=== PATIENT | female | born 1970 | race Caucasian/White ===

== ENCOUNTER → 2016-10-04 | Outpatient (CLI) | payer BC ==
[~2016-10-04] MED LIST: MULT1CAP6 PO; PYRI100T4 PO
== END | disposition home or self-care (01) ==
LOC: C.PAPS 08:16
PROVIDERS: ATTEND Obstetrics & Gynecology
DX: Z01.419 Encounter for gynecological examination (general) (routine) without abnormal findings (principal); R87.610 Atypical squamous cells of undetermined significance on cytologic smear of cervix (ASC-US)

== ENCOUNTER → 2016-10-18 | Outpatient (CLI) | payer BC | END | disposition home or self-care (01) | LOC: C.PATHSPEC 17:25 | PROVIDERS: ATTEND Surgery | DX: D17.30 Benign lipomatous neoplasm of skin and subcutaneous tissue of unspecified sites (principal) ==

== ENCOUNTER → 2016-12-31 | Outpatient (CLI) | payer BC ==
--- NOTE | 2016-12-31 16:07 | DIAGNOSTIC IMAGING REPORT ---
R SHOULDER MIN 2 VIEWS ROUTINE CLINICAL HISTORY: Right shoulder pain status post trauma COMPARISON: None. DISCUSSION: No fractures or dislocations are visualized. There is a small bone island within the humeral head. IMPRESSION: No fractures or dislocations identified. Electronically signed by: Juanito Saenz M.D. 12/31/2016 4:05 PM Dictated Date/Time: 12/31/2016 4:05 PM
== END | disposition home or self-care (01) ==
LOC: C.RAD1850 15:52
PROVIDERS: ATTEND Physician Assistant
DX: S49.91XA Unspecified injury of right shoulder and upper arm, initial encounter (principal); X58.XXXA Exposure to other specified factors, initial encounter

== ENCOUNTER 2017-04-08 07:40 | Emergency (ER) | payer BC, OTHER ==
[~2017-04-08] VITALS: Ht 165.1 cm; Wt 102.1 kg
[2017-04-08 07:43] VITALS: TEMP 36.8; Ht 165.1 cm; Wt 102.1 kg
[2017-04-08] MEDS ORDERED: ONDANSETRON INJ 2 MG/ML 2 ML VIAL IV STA (08:02)
[2017-04-08] MEDS ORDERED: MoRPHine SULFATE 4 MG/ML 1 ML CARP\\VIAL IV STA ×2 (08:02→11:09)
[2017-04-08] MEDS ORDERED: OPTIRAY 320 IV PRN (08:15)
[2017-04-08 08:20] LABS: BASO % 0.4 %; BASO ABS # 0.03 K/uL (0-0.2); EOS % 2.4 %; EOS ABS # 0.17 K/uL (0-0.5); HEMATOCRIT 39.6 % (37-47); HEMOGLOBIN 13.4 g/dL (12.0-16.0); IG# 0.02 K/uL (0.00-0.02); LYMPH % 24.6 %; LYMPH ABS # 1.78 K/uL (1.2-3.4); MEAN CORPUSCULAR HEMOGLOBIN 30.5 pg (25-34); MEAN CORPUSCULAR HGB CONC 33.8 g/dl (32-36); MEAN PLATELET VOLUME 9.4 fL (7.4-10.4); MONO % 3.6 %; MONO ABS # 0.26 K/uL (0.11-0.59); NEUT % 68.7 %; NEUT ABS # 4.97 K/uL (1.4-6.5); PLATELET COUNT 234 K/uL (130-400); RED CELL DISTRIBUTION WIDTH CV 12.8 % (11.5-14.5); RED CELL DISTRIBUTION WIDTH SD 41.8 fL (36.4-46.3); WHITE BLOOD COUNT 7.23 K/uL (4.8-10.8)
[2017-04-08] MEDS ORDERED: BCPILLS PO (08:36)
[2017-04-08 08:37] LABS: ALBUMIN 3.5 gm/dl (3.4-5.0); CREATININE 0.74 mg/dl (0.60-1.20); POTASSIUM 3.9 mmol/L (3.5-5.1)
[2017-04-08 08:40] LABS: TOTAL PROTEIN 7.2 gm/dl (6.4-8.2)
--- NOTE | 2017-04-08 10:58 | DIAGNOSTIC IMAGING REPORT ---
CT OF THE ABDOMEN AND PELVIS WITH CONTRAST CLINICAL HISTORY: Right lower quadrant abdominal pain. COMPARISON STUDY: CT of the abdomen and pelvis December 20, 2012. TECHNIQUE: Following IV administration of 95 mL of Optiray-320, axial images of the abdomen and pelvis were obtained from the lung bases to the proximal femurs. Images were reviewed in the axial, sagittal, and coronal planes. IV contrast was administered without complication. A dose lowering technique was utilized adhering to the principles of ALARA. Oral contrast was administered. CT DOSE: 1056.70 mGycm FINDINGS: Lung bases are clear. There is mild cardiomegaly. The liver, spleen, adrenal glands, kidneys and pancreas are unremarkable. There is no biliary or pancreatic ductal dilatation. There is no peripancreatic or pericholecystic infiltration. Caliber and wall thickness of small and large bowel are normal. The appendix is normal. There is no lymphadenopathy or ascites. There is no hydronephrosis. No suspicious osseous lesions are present. The ovaries are not enlarged. IMPRESSION: No acute process within the abdomen or pelvis. Normal appendix. No bowel obstruction. Electronically signed by: Jarret Houston M.D. 04/08/2017 10:56 AM Dictated Date/Time: 04/08/2017 10:50 AM
--- NOTE | 2017-04-08 11:06 | EMERGENCY ROOM VISIT NOTE ---
History First contact with patient: 07:47 Chief Complaint: ABDOMINAL PAIN Stated Complaint: SEVERE PAIN IN LOWER RT SIDE OF ABD Nursing Triage Summary: Yesterday morning about this time I got this burning in my lower abdomen. Now the pain is more intense and painful. I had a tummy tuck 3 years ago". History of Present Illness The patient is a 46 year old female who presents to the Emergency Room via private vehicle with complaints of "severe pain and lower right side of abdomen ". The patient states that she awoke with right lower quadrant abdominal pain, worse with sitting. She states that she did have a "tummy tuck" 3 years ago and questions if this could be residual scar tissue. She notes that the pain is burning and now knifelike in the right lower quadrant. She still has all of her intra-abdominal organs. She denies any dysuria, or pelvic pain. There is no vaginal discharge. She denies any fevers. Review of Systems A complete 10-point Review of Systems was discussed with the patient, with pertinent positives and negatives listed in the History of Present Illness. All remaining Review of Systems questions can be considered negative unless otherwise specified. Past Medical/Surgical History "Tummy tuck" Family History No pertinent. Social History Smoking Status: Never Smoker Social History: Patient lives locally. Current/Historical Medications Scheduled Control Pills ( Control Pills), 1 TAB PO DAILY Scheduled PRN Oxycodone Ir (Roxicodone Ir), 1-2 TAB PO Q4H PRN for Pain Allergies Coded Allergies: No Known Allergies (Verified , 04/08/17) Physical Exam Vital Signs Date Time Temp Pulse Resp B/P (MAP) Pulse Ox O2 Delivery O2 Flow Rate FiO2 04/08/17 14:13 84 18 123/78 97 Room Air 04/08/17 11:58 62 16 123/68 96 Room Air 04/08/17 09:23 79 18 136/83 100 Room Air 04/08/17 07:43 36.8 80 20 143/86 98 Room Air Physical Exam VITAL SIGNS - Vital signs and nursing notes were reviewed. Stable. Afebrile. GENERAL -46-year-old female appearing her stated age who is in no acute distress. Communicates well with provider and answers questions appropriately. SKIN - Without rashes. No petechiae or meningeal rash. LUNGS - Chest wall symmetric without accessory muscle use, intercostals retractions, or central cyanosis. Normal vesicular breath sounds CTA B/L. No wheezes, rales, or rhonchi appreciated. CARDIAC - RRR with S1/S2. No murmur, rubs, or gallops appreciated. ABDOMEN - Abdominal contour normal without pulsations or visible masses. BS normoactive all four quadrants. Right lower quadrant tenderness not identified. No palpable masses, hepatosplenomegaly, or ascites noted. Medical Decision & Procedures ER Provider Diagnostic Interpretation: CT OF THE ABDOMEN AND PELVIS WITH CONTRAST CLINICAL HISTORY: Right lower quadrant abdominal pain. COMPARISON STUDY: CT of the abdomen and pelvis December 20, 2012. TECHNIQUE: Following IV administration of 95 mL of Optiray-320, axial images of the abdomen and pelvis were obtained from the lung bases to the proximal femurs. Images were reviewed in the axial, sagittal, and coronal planes. IV contrast was administered without complication. A dose lowering technique was utilized adhering to the principles of ALARA. Oral contrast was administered. CT DOSE: 1056.70 mGycm FINDINGS: Lung bases are clear. There is mild cardiomegaly. The liver, spleen, adrenal glands, kidneys and pancreas are unremarkable. There is no biliary or pancreatic ductal dilatation. There is no peripancreatic or pericholecystic infiltration. Caliber and wall thickness of small and large bowel are normal. The appendix is normal. There is no lymphadenopathy or ascites. There is no hydronephrosis. No suspicious osseous lesions are present. The ovaries are not enlarged. IMPRESSION: No acute process within the abdomen or pelvis. Normal appendix. No bowel obstruction. Electronically signed by: Jarret Houston M.D. 04/08/2017 10:56 AM Dictated Date/Time: 04/08/2017 10:50 AM PELVIC ULTRASOUND, TRANSABDOMINAL AND TRANSVAGINAL HISTORY: Right lower quadrant abdominal pain. COMPARISON: Abdomen and pelvis CT 04/08/2017. FINDINGS: Uterus: 6.7 x 3.8 x 2.6 cm. Evidence for prior scar. No uterine masses. Endometrial stripe: 3 mm in thickness. Right ovary: Normal in size and demonstrates normal color flow. Left ovary: Obscured by overlying bowel gas. Miscellaneous:No pelvic free fluid. IMPRESSION: 1. The left ovary was not identified due to overlying bowel gas. 2. Normal uterus and right ovary. Electronically signed by: Ramon Mcleod M.D. 04/08/2017 1:44 PM Dictated Date/Time: 04/08/2017 1:40 PM Laboratory Results 04/08/17 08:06 Red Blood Count 4.40, Mean Corpuscular Volume 90.0, Mean Corpuscular Hemoglobin 30.5, Mean Corpuscular Hemoglobin Concent 33.8, Mean Platelet Volume 9.4, Neutrophils (%) (Auto) 68.7, Lymphocytes (%) (Auto) 24.6, Monocytes (%) (Auto) 3.6, Eosinophils (%) (Auto) 2.4, Basophils (%) (Auto) 0.4, Neutrophils # (Auto) 4.97, Lymphocytes # (Auto) 1.78, Monocytes # (Auto) 0.26, Eosinophils # (Auto) 0.17, Basophils # (Auto) 0.03 04/08/17 08:06 Test 04/08/17 08:06 04/08/17 08:25 White Blood Count 7.23 K/uL (4.8-10.8) Red Blood Count 4.40 M/uL (4.2-5.4) Hemoglobin 13.4 g/dL (12.0-16.0) Hematocrit 39.6 % (37-47) Mean Corpuscular Volume 90.0 fL (80-100) Mean Corpuscular Hemoglobin 30.5 pg (25-34) Mean Corpuscular Hemoglobin Concent 33.8 g/dl (32-36) Platelet Count 234 K/uL (130-400) Mean Platelet Volume 9.4 fL (7.4-10.4) Neutrophils (%) (Auto) 68.7 % Lymphocytes (%) (Auto) 24.6 % Monocytes (%) (Auto) 3.6 % Eosinophils (%) (Auto) 2.4 % Basophils (%) (Auto) 0.4 % Neutrophils # (Auto) 4.97 K/uL (1.4-6.5) Lymphocytes # (Auto) 1.78 K/uL (1.2-3.4) Monocytes # (Auto) 0.26 K/uL (0.11-0.59) Eosinophils # (Auto) 0.17 K/uL (0-0.5) Basophils # (Auto) 0.03 K/uL (0-0.2) RDW Standard Deviation 41.8 fL (36.4-46.3) RDW Coefficient of Variation 12.8 % (11.5-14.5) Immature Granulocyte % (Auto) 0.3 % Immature Granulocyte # (Auto) 0.02 K/uL (0.00-0.02) Anion Gap 9.0 mmol/L (3-11) Est Creatinine Clear Calc Drug Dose 113.7 ml/min Estimated GFR () 113.4 Estimated GFR (Non- 97.8 BUN/Creatinine Ratio 13.8 (10-20) Calcium Level 9.0 mg/dl (8.5-10.1) Magnesium Level 2.0 mg/dl (1.8-2.4) Total Bilirubin 0.3 mg/dl (0.2-1) Aspartate Amino Transf (AST/SGOT) 18 U/L (15-37) Alanine Aminotransferase (ALT/SGPT) 23 U/L (12-78) Alkaline Phosphatase 92 U/L (45-117) Total Protein 7.2 gm/dl (6.4-8.2) Albumin 3.5 gm/dl (3.4-5.0) Globulin 3.7 gm/dl (2.5-4.0) Albumin/Globulin Ratio 0.9 (0.9-2) Urine Color YELLOW Urine Appearance CLEAR (CLEAR) Urine pH 8.0 (4.5-7.5) Urine Specific [place] 1.016 (1.000-1.030) Urine Protein NEG (NEG) Urine Glucose (UA) NEG (NEG) Urine Ketones NEG (NEG) Urine Occult Blood NEG (NEG) Urine Nitrite NEG (NEG) Urine Bilirubin NEG (NEG) Urine Urobilinogen NEG (NEG) Urine Leukocyte Esterase NEG (NEG) Urine Test NEG (NEG) Medications Administered Medications (Trade) Dose Ordered Sig/Samir Route Start Time Stop Time Status Last Admin Dose Admin Ondansetron HCl (Zofran Inj) 4 mg NOW STAT IV 04/08/17 08:02 04/08/17 08:03 DC 04/08/17 08:16 4 MG Morphine Sulfate (MoRPHine SULFATE INJ) 4 mg NOW STAT IV 04/08/17 08:02 04/08/17 08:03 DC 04/08/17 08:16 4 MG Morphine Sulfate (MoRPHine SULFATE INJ) 4 mg NOW STAT IV 04/08/17 11:09 04/08/17 11:11 DC 04/08/17 11:09 4 MG Medical Decision Patient was seen and evaluated as above. She presents to us today with right lower quadrant abdominal pain. She is nontoxic on exam. IV access was initiated, and the above workup was performed. CT scan was performed and negative. Ultrasound was obtained to evaluate the ovaries and was also negative. She was given morphine for her pain. She is reevaluated and appears stable for outpatient management. CBC reveals no concern of leukocytosis or anemia. Metabolic panel normal. Urine negative. test negative. I suspect she likely has a pulled muscle in the right lower quadrant. She is to follow-up with family doctor. Shortly worse of oxycodone will be initiated. No red flags in the [place] drug monitoring system. In evaluation and treatment of this patient the following differential diagnoses were entertained: Appendicitis, ovarian torsion, bowel obstruction, diverticulitis, among others. Impression Primary Impression: Abdominal pain, right lower quadrant Departure Information Dispostion Home / Self-Care Condition GOOD Prescriptions Oxycodone Ir (Roxicodone Ir) 5 Mg Tab 1-2 TAB PO Q4H Y for Pain, #15 TAB For Initial Treatment Prov: David Robbins PA-C 04/08/17 Referrals Bette Balbuena M.D. (PCP) Patient Instructions My [facility] Additional Instructions You have been treated in the Emergency Department your Abdominal Pain. Laboratory results and imaging studies have ruled out any emergent causes for your abdominal pain which would warrant admission or surgery. You have been prescribed Oxy IR to be used for pain control. This is a narcotic medication. You cannot drive or consume alcohol while on this medicine. This medicine should only be used for pain that cannot be controlled with over-the- counter pain medicines. For pain control, you can use the following [id number] medicines : - Regular strength (325mg/tab) Tylenol (acetaminophen) 2 tabs every 4-6 hours as needed. Do not exceed 12 tablets in a 24 hour period. Avoid taking more than 3 grams (3000 mg) of Tylenol per day. This includes any other sources of acetaminophen you may take on a regular basis. - Regular strength (200 mg/tab) Advil (ibuprofen) 1-2 tabs every 4-6 hours as needed. Do not exceed a dose of 3200 mg per day. Drink plenty of water and stay well hydrated. As with any trip to the Emergency Department, you should follow-up with your Primary Care Provider from today's visit. Return to the emergency department if your symptoms persist despite treatment plan outlined above or if the following symptoms occur: increased fevers, chills , worsening nausea/vomiting, blood in your stool or urine.
--- NOTE | 2017-04-08 13:45 | DIAGNOSTIC IMAGING REPORT ---
PELVIC ULTRASOUND, TRANSABDOMINAL AND TRANSVAGINAL HISTORY: Right lower quadrant abdominal pain. COMPARISON: Abdomen and pelvis CT 04/08/2017. FINDINGS: Uterus: 6.7 x 3.8 x 2.6 cm. Evidence for prior scar. No uterine masses. Endometrial stripe: 3 mm in thickness. Right ovary: Normal in size and demonstrates normal color flow. Left ovary: Obscured by overlying bowel gas. Miscellaneous:No pelvic free fluid. IMPRESSION: 1. The left ovary was not identified due to overlying bowel gas. 2. Normal uterus and right ovary. Electronically signed by: Ramon Mcleod M.D. 04/08/2017 1:44 PM Dictated Date/Time: 04/08/2017 1:40 PM
[2017-04-08] MEDS ORDERED: OXYC1TAB3 PO (14:21)
[2017-04-08 14:54] VITALS: BP 159/94; PULSE 75; O2SAT 96
== END 2017-04-08 14:50 | disposition home or self-care (01) ==
LOC: C.EDB 07:41 → C.EDA 14:50
DX: R10.31 Right lower quadrant pain (principal); Z79.3 Long term (current) use of hormonal contraceptives

== ENCOUNTER 2024-01-27 10:50 | Observation (INO) ==
[2024-01-27 11:28] LABS: Hematocrit (blood only) 38.3 % (37.0-47.0); Hemoglobin 13.5 g/dl (12.0-16.0); Mean Corpuscular Hemoglobin 32.1 pg (25.0-34.0); Mean Corpuscular Hgb Conc 35.2 g/dL (32.0-36.0); Mean Corpuscular Volume 91.2 fL (80.0-100.0); Mean Platelet Volume 10.2 fL (9.4-12.4); Platelet Count 240 K/uL (130-400); RDW Coefficient of Variation 12.2 % (11.5-14.5); RDW Standard Deviation 40.6 fL (36.4-46.3); White Blood Count 8.82 K/ul (4.8-10.8)
--- NOTE | 2024-01-27 11:49 | Emergency Department Note ---
Impression & Plan Acute cholecystitis, Elevated LFTs, Abdominal pain, Vomiting ED Provider Note NAME: FATOUMATA YORK AGE: 53 SEX: F : 1970 ARRIVES VIA: Walk-In INFORMANT: Patient ED PROVIDER(S): Mark Decker DO CHIEF COMPLAINT: chest pain HPI: Patient is a 53-year-old female who presents to the ER for epigastric abdominal pain that started around 10:00 last night. She notes she had a couple of drinks of spiked egg nog and thought that this caused the gas. Denies any headache or change in vision. Pain comes up into the upper part of the chest from the belly. She admits to nausea and vomiting. Was worse after eating. Does go through to the back. No dysuria, urgency, or frequency. She had some similar to this about 3 weeks ago. No previous abdominal surgeries. She still has a gallbladder. Denies any history of diabetes, hypertension, hyperlipidemia or CAD. ADDITIONAL HISTORY OBTAINED: Per HPI Chronic Medical/Social Conditions Affecting Care: Per HPI PAST MEDICAL HISTORY:See Below PAST SURGICAL HISTORY:See Below FAMILY HISTORY:See Below SOCIAL HISTORY:See Below HOME MEDICATIONS:See Below ALLERGIES:See Below VITALS:See Below PHYSICAL EXAMINATION: GENERAL: Sitting up in bed, alert, well appearing, well nourished, no distress, non-toxic EYE EXAM: normal conjunctiva. PERRL and EOM's grossly intact. OROPHARYNX: mucous membranes are moist NECK: supple, no nuchal rigidity, no adenopathy, non-tender LUNGS: Clear to auscultation. Normal chest wall mechanics HEART: no murmurs, S1 normal and S2 normal ABDOMEN: abdomen soft, non-tender, normo-active bowel sounds, no masses, no rebound or guarding. UPPER EXTREMITIES: upper extremities are grossly normal. LOWER EXTREMITIES: No pitting edema. NEURO EXAM: Normal sensorium, cranial nerves II-XII grossly intact, normal speech, no gross weakness of arms, no gross weakness of legs. MEDICAL DECISION MAKING: Patient is a 53-year-old female who presents ER for above-stated complaint. IV was established and blood work was obtained. Labs show no significant leukocytosis or anemia. INR unremarkable. D-dimer was obtained initially as she was having chest pain and triage protocols but upon evaluation pain is focal in the epigastric region and reproducible. Do not feel this consistent with PE. BMP was unremarkable. T. bili mildly up at 2.0. AST at 1100 and ALT at 660. Troponin was negative. Lipase was normal. CT abdomen pelvis showed a distended gallbladder and concern for cholecystitis which was again confirmed via ultrasound but no significant maladies of the CBD. Discussed with GI and general surgery and they recommended MRCP. If negative recommend admission to medicine and IV antibiotics and they will evaluate. MRCP was negative. Consulted hospitalist for admission and reupdated general surgery. Patient was given IV Zosyn while in the ER and as well as IV morphine. She does not use Tylenol regularly. Patient was updated at bedside. Consults/Care Managements Discussions: Per [facility] Triage Nursing notes reviewed. Limited review of prior medical records performed Vital Signs: reviewed and remarkable for no significant abnormalities Differential diagnosis: Cardiac ischemia, aortic dissection, pulmonary embolism, pneumothorax, pneumonia, pericarditis, myocarditis, esophageal rupture, GERD, cholecystitis, pancreatitis, musculoskeletal, as well as other pathologies. ER treatment provided: See below Diagnostics interpreted by me include EKG and cardiac monitoring as listed below: -Cardiac Monitoring: An order was placed for continuous cardiac monitoring. The monitor shows a rate of 95 with sinus rhythm. -ECG: Sinus rhythm rate 80 Normal axis No PVCs QTc 440 -Laboratory studies:Interpreted by me as stated above in MDM and shown below. Imaging studies: Xrays: As interpreted by me: Portable AP upright 1 view of the chest shows no focal M-Trate CTs show: CT abdomen pelvis was concerning for cholecystitis Ultrasound the gallbladder was concerning for cholecystitis with CBD normal MRCP shows acute cholecystitis with no stones in the CBD Procedures:none Critical Care: None Past Med/Surg History Problem List (Updated 01/27/24 @ 17:43 by Mark Decker DO) Vomiting (Acute) Abdominal pain (Acute) Acute cholecystitis (Acute) Elevated LFTs (Acute) Urinary urgency Urge and stress incontinence Spontaneous complicated by delayed or excessive hemorrhage (Acute) Spontaneous complicated by delayed or excessive hemorrhage (Acute) Medical History Snoring Obstructive sleep apnea Hypersomnolence FALL[place] (dyspnea on exertion) Chronic cough Asthma Surgical History H/O section H/O abdominoplasty Family History Mother Hypertension Father Nephrolithiasis Family/Other Breast cancer Diabetes Social History Smoking Status: Never smoker marital status: Feels Safe at Home: Yes Allergies Allergies Allergy/AdvReac Type Severity Reaction Status Date / Time No Known Allergies Allergy Verified 07/18/20 14:55 Home Meds Home Medications Medication Instructions Recorded Confirmed calcium 600 mg (as cap PO 10/31/18 07/03/22 carbonate)-vitamin D3 5 mcg (200 unit) capsule multivitamin 1 tab PO DAILY 10/31/18 07/03/22 omeprazole 20 mg capsule,delayed 20 mg PO DAILY 10/31/18 07/03/22 release bupropion HCl 150 mg tablet,12 hr 150 mg PO BID 11/18/18 07/03/22 sustained-release Previous Rx's Medication Instructions Recorded fesoterodine 8 mg tablet,extended 8 mg PO DAILY #90 tabs 01/10/22 release 24 hr (Toviaz) Results & Data (ED) Vital Signs Vital Signs - 24 hr 01/27/24 10:54 01/27/24 10:58 01/27/24 12:03 Temperature 36.6 C Temperature Source Skin Pulse Rate 98 H 88 Pulse Rate [Finger] Pulse Rhythm Regular Pulse Rhythm [Finger] Pulse Strength [Finger] Respiratory Rate 18 18 Respiratory Effort / Characteristics Respiratory Depth Respiratory Pattern Blood Pressure 158/99 H Blood Pressure [Right Arm] Blood Pressure Mean 118 Blood Pressure Mean [Right Arm] Blood Pressure Position [Right Arm] Pulse Oximetry 93 100 100 Oxygen Delivery Method Room Air Room Air Room Air Sepsis Recent Fever Within 48 Hours No Sepsis New/Unexplained Change in Mental Status No Sepsis Action Taken by Nursing No Action Required 01/27/24 12:45 01/27/24 13:34 01/27/24 14:00 Temperature 37.0 C Temperature Source Oral Pulse Rate Pulse Rate [Finger] 80 93 H 87 Pulse Rhythm Pulse Rhythm [Finger] Regular Regular Pulse Strength [Finger] Normal Normal Normal Respiratory Rate 18 18 18 Respiratory Effort / Characteristics Non-Labored Non-Labored Spontaneous Non-Labored Respiratory Depth Normal Normal Normal Respiratory Pattern Regular Regular Regular Blood Pressure Blood Pressure [Right Arm] 138/83 117/81 110/69 Blood Pressure Mean Blood Pressure Mean [Right Arm] 101 93 82 Blood Pressure Position [Right Arm] Lying Sitting Lying Pulse Oximetry 100 98 95 Oxygen Delivery Method Room Air Room Air Room Air Sepsis Recent Fever Within 48 Hours Sepsis New/Unexplained Change in Mental Status Sepsis Action Taken by Nursing 01/27/24 14:35 01/27/24 17:05 Temperature Temperature Source Pulse Rate 81 Pulse Rate [Finger] 88 Pulse Rhythm Pulse Rhythm [Finger] Pulse Strength [Finger] Respiratory Rate 18 Respiratory Effort / Characteristics Non-Labored Spontaneous Respiratory Depth Respiratory Pattern Blood Pressure Blood Pressure [Right Arm] 105/74 Blood Pressure Mean Blood Pressure Mean [Right Arm] 84 Blood Pressure Position [Right Arm] Lying Pulse Oximetry 96 Oxygen Delivery Method Room Air Sepsis Recent Fever Within 48 Hours Sepsis New/Unexplained Change in Mental Status Sepsis Action Taken by Nursing Laboratory Data 01/27/24 11:05 01/27/24 11:05 Lab Results 01/27/24 01/27/24 Range/Units 11:05 11:05 WBC 8.82 (4.8-10.8) K/ul RBC 4.20 (4.20-5.40) M/uL Hgb 13.5 (12.0-16.0) g/dl Hct 38.3 (37.0-47.0) % MCV 91.2 (80.0-100.0) fL MCH 32.1 (25.0-34.0) pg MCHC 35.2 (32.0-36.0) g/dL RDW Std Deviation 40.6 (36.4-46.3) fL RDW Coeff of Shannan 12.2 (11.5-14.5) % Plt Count 240 (130-400) K/uL MPV 10.2 (9.4-12.4) fL Immature Gran % (Auto) 0.2 % Neut % (Auto) 90.5 % Lymph % (Auto) 5.4 % Stearns % (Auto) 3.7 % Eos % (Auto) 0.0 % Baso % (Auto) 0.2 % Neut # (Auto) 7.97 H (1.40-6.50) K/uL Lymph # (Auto) 0.48 L (1.20-3.40) K/uL Stearns # (Auto) 0.33 (0.11-0.59) K/uL Eos # (Auto) 0.00 (0.00-0.50) K/uL Baso # (Auto) 0.02 (0.00-0.20) K/uL Immature Gran # (Auto) 0.02 (0.01-0.20) K/uL PT 10.4 (9.0-12.0) Seconds INR 1.0 (0.9-1.1) APTT 23 (21-31) Seconds PTT Ratio 0.9 D-Dimer 1350 H* Cancelled (0-500) ug/L FEU Sodium 140 (136-145) mmol/L Potassium 3.6 (3.5-5.1) mmol/L Chloride 101 (98-107) mmol/L Carbon Dioxide 31 (21-32) mmol/L Anion Gap 8 (3-11) BUN 9 (6-23) mg/dl Creatinine 0.69 (0.6-1.2) mg/dl Est Cr Clr Drug Dosing 89.3 ml/min eGFR 104.36 BUN/Creatinine Ratio 13.0 (10-20) Glucose 126 H (70-99(Fasting)) mg/dl Calcium 9.8 (8.6-10.3) mg/dl Total Bilirubin 2.0 H (0.2-1.0) mg/dl AST 1123 H (13-39) U/L ALT 664 H (7-52) U/L Alkaline Phosphatase 157 H (34-104) U/L Troponin I High Sens 6.0 (0-14) pg/ml Total Protein 7.2 (6.0-8.3) gm/dl Albumin 4.7 (3.4-5.0) gm/dl Globulin 2.5 (2.5-4.0) gm/dl Albumin/Globulin Ratio 1.9 (0.9-2) Lipase 25 (11-82) U/L Administered Medications Discontinued Medications Al Hydrox/Mg Hydrox/Simethicone (Aluminum/Magnesium Susp 30 Ml Udc) 15 ml PO NOW STA Stop: 01/27/24 11:46 Last Admin: 01/27/24 12:14 Dose: 15 ml Documented By: KAYLEEN Sodium Chloride (Nss) 1,000 mls @ 999 mls/hr IV .Q1H1M ONE Stop: 01/27/24 12:45 Last Infusion: 01/27/24 13:09 Dose: Infused Documented By: Admin: 01/27/24 12:09 Dose: 999 mls/hr Documented By: KAYLEEN Piperacillin Sod/Tazobactam Sod (Zosyn) 4.5 gm in 100 mls @ 200 mls/hr IV NOW ONE; Protocol Stop: 01/27/24 13:59 Last Infusion: 01/27/24 14:25 Dose: Infused Documented By: Admin: 01/27/24 13:41 Dose: 200 mls/hr Documented By: CELESTINA Sodium Chloride (Nss) 1,000 mls @ 999 mls/hr IV .Q1H1M ONE Stop: 01/27/24 18:16 Last Admin: 01/27/24 17:44 Dose: 999 mls/hr Documented By: ALDEN Ioversol (Optiray 320 100ml) 93 ml IV ONCE ONE Stop: 01/27/24 12:48 Last Admin: 01/27/24 12:48 Dose: 93 ml Documented By: TAMEKA Ketorolac Tromethamine (Ketorolac Tromethamine 15 Mg/Ml Vial) 10 mg IV NOW ONE Stop: 01/27/24 17:17 Last Admin: 01/27/24 17:45 Dose: 10 mg Documented By: ALDEN Morphine Sulfate (Morphine Sulfate 10 Mg/Ml Carp/Vial) 6 mg IV NOW STA Stop: 01/27/24 12:35 Last Admin: 01/27/24 12:41 Dose: 6 mg Documented By: KAYLEEN Ondansetron HCl (Ondansetron Inj 2 Mg/Ml 2 Ml Vial) 4 mg IV NOW STA Stop: 01/27/24 11:46 Last Admin: 01/27/24 12:11 Dose: 4 mg Documented By: KAYLEEN Imaging Data Radiologist's Impression: Chest X-Ray 01/27/24 10:58 XR chest 1V not portable HISTORY: 53 years-old Female Chest pain, nonspecific COMPARISON: 07/23/2018 TECHNIQUE: PA view the chest FINDINGS: Cardiomediastinal and hilar silhouettes appear normal. No pneumothorax, pleural effusion or airspace consolidation. The bones appear grossly intact. IMPRESSION: No acute process. ACT 112: Negative or not required by law. The above report was generated using voice recognition software. It may contain grammatical, syntax or spelling errors. Electronically signed by: Hong Zavala M.D. 01/27/2024 12:02 PM Abdomen/Pelvis CT 01/27/24 12:34 CT OF THE ABDOMEN AND PELVIS WITH CONTRAST CLINICAL HISTORY: Abdominal pain. COMPARISON STUDY: CT of the abdomen and pelvis August28/11/2017 and pelvic ultrasound April 08, 2017 TECHNIQUE: Following IV administration of 93 mL of Optiray, axial images of the abdomen and pelvis were obtained from the lung bases to the proximal femurs. Images were reviewed in the axial, sagittal, and coronal planes. IV contrast was administered without complication. Automated exposure control was utilized for the study. A dose lowering technique was utilized adhering to the principles of ALARA. CT DOSE: 655.81 mGy.cm FINDINGS: No pneumatosis, free air or portal venous gas is present. Mild biliary ductal dilatation is noted. The common bile duct measures 8 mm in caliber. There is periportal edema. The liver is mildly enlarged. There are no hepatic lesions. The gallbladder is moderately distended. Mild gallbladder wall thickening is present. There is mild edema/stranding within the timo hepatis. Main, left and right portal veins are patent. There is no pancreatic ductal dilatation. No peripancreatic fluid is present. The spleen, adrenal glands and kidneys are unremarkable. There is no hydronephrosis. A small amount of fluid within the pelvis is present. The caliber and wall thickness of small and large bowel are normal. IMPRESSION: 1. Mild biliary ductal dilatation. Correlation with obstructive liver function tests is recommended. 2. Moderate gallbladder distention with mild gallbladder wall thickening. Mild edema/stranding within the timo hepatis. These findings are nonspecific and right upper quadrant ultrasound is recommended to assess for acute cholecystitis. 3. Mild hepatomegaly. 4. No bowel obstruction. No bowel wall thickening. 5. Trace fluid within the pelvis. ACT 112: Negative or not required by law. Electronically signed by: Jarret Houston M.D. 01/27/2024 1:25 PM Cholangiopancreatography MRI 01/27/24 13:36 Clinical history: Epigastric pain. Nausea and vomiting Technique: Multiple T1 and T2-weighted magnetic resonance images were obtained of the abdomen without gadolinium contrast. MRCP images were obtained No prior examination is available for comparison Findings: No liver mass lesion is identified. The liver is enlarged measuring 20.6 cm craniocaudal. There is no sign of cirrhosis or significant fatty infiltration. There are multiple gallstones. There is mild gallbladder wall thickening and there is adjacent fluid, concerning for acute cholecystitis. No bile duct dilatation is noted. No definite stricturing or beading of the bile ducts is seen to suggest primary sclerosing cholangitis or other intrinsic bile duct pathology. There is no definite choledocholithiasis. The pancreatic duct is of normal caliber. There is no definite sign of pancreatic divisum or other congenital anomaly. There is no sign of acute pancreatitis. No definite pancreatic mass lesion is seen The spleen is of normal size. No focal splenic lesion is evident. The adrenal glands appear unremarkable. No renal mass lesion is seen. There is no hydronephrosis The visualized aorta is of normal caliber. No adenopathy is seen. There is a minimal amount of ascites. No definite abnormality of the abdominal wall musculature is identified. No hernia is seen Impression: 1. Cholelithiasis with apparent acute cholecystitis 2. No definite bile duct pathology 3. Minimal amount of ascites 4. Hepatomegaly Electronically signed by Jett Dewitt 01-27-2024 5:21 PM Gallbladder Ultrasound 01/27/24 13:47 US gallbladder CLINICAL HISTORY: ? Choledocholithiasis COMPARISON STUDY: CT of the abdomen and pelvis performed earlier today. FINDINGS: Liver is mildly enlarged, measuring 20 cm in craniocaudal dimension. No hepatic lesions are identified. The main portal vein is patent with appropriately directed flow. Caliber of the common bile duct is at the upper limits of normal, measuring 6 mm in caliber. No common bile duct calculi are identified. The gallbladder is moderately distended. Small gallstones within the gallbladder are present. The gallbladder wall is thickened, measuring 7 mm in thickness. Sonographic John sign could not be assessed for given pain medication administration. Pancreas is unremarkable by sonography. There is no right hydronephrosis. IMPRESSION: 1. Top normal caliber common bile duct. No common bile duct calculi identified although distal common bile duct obscured. 2. Distended gallbladder with cholelithiasis and gallbladder wall thickening. Unable to assess for sonographic John sign. Acute cholecystitis cannot be excluded and a nuclear medicine hepatobiliary scan could be obtained. ACT 112: Negative or not required by law. Electronically signed by: Jarret Houston M.D. 01/27/2024 3:57 PM Discharge Plan Visit Data Chief Complaint: Chest Pain Stated Complaint: CHEST PAIN/12 HRS ED Provider: Mark Decker Discharge Problem: Acute cholecystitis, Elevated LFTs, Abdominal pain, Vomiting Forms Stand Alone Forms: My [facility] Prescriptions Prescriptions: No Action Toviaz 8 mg tablet extended release 24 hr 8 mg PO DAILY Qty: 90 1RF bupropion HCl 150 mg tablet sustained-release 12 hr 150 mg PO BID calcium carbonate-vitamin D3 600 mg calcium- 200 unit capsule PO multivitamin tablet 1 tab PO DAILY omeprazole 20 mg capsule,delayed release(DR/EC) 20 mg PO DAILY Referrals Referrals: Bette Balbuena MD [Primary Care Provider] -
[2024-01-27 11:55] LABS: Calcium 9.8 mg/dl (8.6-10.3); Creatinine Clr Calc Pharmacy 89.3 ml/min; Potassium 3.6 mmol/L (3.5-5.1)
[2024-01-27 11:59] LABS: Basophils # (auto) 0.02 K/uL (0.00-0.20); Basophils % (auto) 0.2 %; Immature Granulocytes # (auto) 0.02 K/uL (0.01-0.20); Immature Granulocytes % (auto) 0.2 %; Lymphocytes # (auto) 0.48 K/uL (1.20-3.40); Lymphocytes % (auto) 5.4 %; Monocytes # (auto) 0.33 K/uL (0.11-0.59); Monocytes % (auto) 3.7 %; Neutrophils # (auto) 7.97 K/uL (1.40-6.50); Neutrophils % (auto) 90.5 %
--- NOTE | 2024-01-27 12:03 | XRay Report ---
XR chest 1V not portable HISTORY: 53 years-old Female Chest pain, nonspecific COMPARISON: 07/23/2018 TECHNIQUE: PA view the chest FINDINGS: Cardiomediastinal and hilar silhouettes appear normal. No pneumothorax, pleural effusion or airspace consolidation. The bones appear grossly intact. IMPRESSION: No acute process. ACT 112: Negative or not required by law. The above report was generated using voice recognition software. It may contain grammatical, syntax o r spelling errors. Electronically signed by: Hong Zavala M.D. 01/27/2024 12:02 PM
[2024-01-27] MEDS: SODIUM CHLORIDE 0.9% 1,000 ML IV ONE ×2 (12:09→17:44)
[2024-01-27] MEDS: ONDANSETRON INJ 2 MG/ML 2 ML VIAL IV STA (12:11)
[2024-01-27 12:12] LABS: Albumin Globulin Ratio 1.9 (0.9-2); Albumin Level 4.7 gm/dl (3.4-5.0); Globulin 2.5 gm/dl (2.5-4.0); Total Protein 7.2 gm/dl (6.0-8.3)
[2024-01-27] MEDS: ALUMINUM/MAGNESIUM SUSP 30 ML UDC PO STA (12:14)
[2024-01-27 12:32] LABS: Partial Thromboplastin Ratio 0.9; Partial Thromboplastin Time 23 Seconds (21-31); Prothrombin Time 10.4 Seconds (9.0-12.0)
[2024-01-27] MEDS: MoRPHine SULFATE 10 MG/ML CARP/VIAL IV STA (12:41)
[2024-01-27] MEDS: OPTIRAY 320 100ml IV ONE (12:48)
[2024-01-27 12:56] LABS: D Dimer 1350 ug/L FEU (0-500)
--- NOTE | 2024-01-27 13:28 | CT Scan Report ---
CT OF THE ABDOMEN AND PELVIS WITH CONTRAST CLINICAL HISTORY: Abdominal pain. COMPARISON STUDY: CT of the abdomen and pelvis August28/11/2017 and pelvic ultrasound April 08 018 TECHNIQUE: Following IV administration of 93 mL of Optiray, axial images of the abdomen and pelvis we re obtained from the lung bases to the proximal femurs. Images were reviewed in the axial, sagittal, and coronal planes. IV contrast was administered without complication. Automated exposure control wa s utilized for the study. A dose lowering technique was utilized adhering to the principles of ALARA . CT DOSE: 655.81 mGy.cm FINDINGS: No pneumatosis, free air or portal venous gas is present. Mild biliary ductal dilatation is noted. The common bile duct measures 8 mm in caliber. There is periportal edema. The liver is mildly enlarged. There are no hepatic lesions. The gallbladder is moderately distended. Mild gallbladder wa ll thickening is present. There is mild edema/stranding within the timo hepatis. Main, left and righ t portal veins are patent. There is no pancreatic ductal dilatation. No peripancreatic fluid is prese nt. The spleen, adrenal glands and kidneys are unremarkable. There is no hydronephrosis. A small amou nt of fluid within the pelvis is present. The caliber and wall thickness of small and large bowel are normal. IMPRESSION: 1. Mild biliary ductal dilatation. Correlation with obstructive liver function tests is recommended. 2. Moderate gallbladder distention with mild gallbladder wall thickening. Mild edema/stranding within the timo hepatis. These findings are nonspecific and right upper quadrant ultrasound is recommended to assess for acute cholecystitis. 3. Mild hepatomegaly. 4. No bowel obstruction. No bowel wall thickening. 5. Trace fluid within the pelvis. ACT 112: Negative or not required by law. Electronically signed by: Jarret Houston M.D. 01/27/2024 1:25 PM
[2024-01-27] MEDS: PIPERACILLIN/TAZOBACTAM 4.5 GM/100 ML BAG IV ONE (13:41)
--- NOTE | 2024-01-27 14:59 | Surgery Consultation ---
Date of Consultation January 27, 2024 Assessment & Plan (1) Elevated LFTs: This is a 53yF with a PMH of and nella wallace who presents to the [facility] ED on 01/27/24 with complaints of abdominal pain, nausea/vomiting. She reports her pain started acutely at 11pm yesterday evening after eating a salad with doritos/cheese/broccoli on the top (no dressing). Her pain was located in the epigastric region radiating to her back rating it a 10/10 in severity. This was associated with nausea/vomiting. She was unable to drink fluids without throwing it up. This AM after eating mac n cheese her abdominal pain flared back up. Because of her symptoms she presented to our ER for further evaluation. She underwent a CT a/p that revealed mild biliary ductal dilatation. It also showed moderate gallbladder distention with mild gallbladder wall thickening. Mild edema/stranding within the timo hepatis. She also underwent a RUQ US that showed top normal caliber common bile duct. No common bile duct calculi identified although distal common bile duct obscured. Distended gallbladder with cholelithiasis and gallbladder wall thickening. Today's blood work shows WBC 8.8, hbg 13, and elevated LFTs with Tb 2, AST 1123, ALT 664, AlkP 157, lipase 24. Patient's vitals are stable and she is afebrile. On exam patient is resting comfortably. Abdomen is soft and non distended with tenderness to palpation in the epigastric and RUQ regions. Given concern for dilated bile ducts in conjunction with elevated LFTs we must rule out choledocholithiasis. An MRCP is ordered. If + she will need to be transferred to a center with GI providers who perform ERCP services. If negative patient may be admitted under medicine and we will trend LFTs and make a decision on timing of surgical intervention once LFTs downtrend. Supervising Physician Co-Signing Physician Notes Patient discussed with MARTIN Mcguire, labs and imaging reviewed, agree with above. Presented with epigastric pain, elevated LFTs. Imaging showed cholelithiasis with suspected cholecystitis and some common bile duct dilatation. MRCP recently completed and showed no obvious choledocholithiasis. She has been admitted to the hospitalist service. We will trend her LFTs, if downtrending then potential cholecystectomy tomorrow. Please make n.p.o. after midnight, may have clear liquids for now. If LFTs continue to worsen or fail to improve, then may recommend GI consultation for other etiology as well as possible ERCP. History of Present Illness History of Present Illness This is a 53yF with a PMH of and nella wallace who presents to the [facility] ED on 01/27/24 with complaints of abdominal pain, nausea/vomiting. She reports her pain started acutely at 11pm yesterday evening after eating a salad with doritos/cheese/broccoli on the top (no dressing). Her pain was located in the epigastric region radiating to her back rating it a 10/10 in severity. This was associated with nausea/vomiting. She was unable to drink fluids without keeping it down. She eventually was able to get some sleep and felt mildly better this AM, but after eating a few bites of mac & cheese her pain immediately returned. She also vomited. Because of her symptoms she presented to our ER for further evaluation. She underwent a CT a/p that revealed mild biliary ductal dilatation. It also showed moderate gallbladder distention with mild gallbladder wall thickening. Mild edema/stranding within the timo hepatis. The patient says she had a similar episode to this about 3 weeks ago, but the symptoms only lasted a bout 20 minutes and went away. The patient denies any chest pain or SOB. She has some sweats and clamminess and chills. Reports some diarrhea yesterday, no blood. Allergies Allergy/AdvReac Type Severity Reaction Status Date / Time No Known Allergies Allergy Verified 07/18/20 14:55 Home Medications Medication Instructions Recorded Confirmed Type calcium 600 mg (as cap PO 10/31/18 07/03/22 History carbonate)-vitamin D3 5 mcg (200 unit) capsule multivitamin 1 tab PO DAILY 10/31/18 07/03/22 History omeprazole 20 mg capsule,delayed 20 mg PO DAILY 10/31/18 07/03/22 History release bupropion HCl 150 mg tablet,12 hr 150 mg PO BID 11/18/18 07/03/22 History sustained-release fesoterodine 8 mg tablet,extended 8 mg PO DAILY #90 tabs 01/10/22 07/03/22 Rx release 24 hr (Toviaz) Patient History Medical History Snoring Obstructive sleep apnea Hypersomnolence FALLON (dyspnea on exertion) Chronic cough Asthma Surgical History H/O section H/O abdominoplasty Family History Mother Hypertension Father Nephrolithiasis Family/Other Breast cancer Diabetes Social History Smoking Status: Never smoker marital status: Feels Safe at Home: Yes Review of Systems Constitutional: + chills and + sweats; no fever Respiratory: + dyspnea Cardiovascular: no chest pain Gastrointestinal: + abdominal pain, + nausea, + vomiting a nd + diarrhea/loose stools; no bloating and no blood in stools Genitourinary: no problem reported Musculoskeletal: + back pain Integumentary: no yellowing of the skin Physical Exam Physical Exam: awake/alert, no distress Constitutional: well developed and well nourished; no acute distress Respiratory: normal respiratory effort Gastrointestinal (Abdomen): Inspection/Auscultation: abdomen not distended Percussion/Palpation: + abdomen tender (ttp in epigastric and RUQ regions) and abdomen soft Results & Data Vital Signs (Past 12 Hours) Vital Signs Temp Pulse Pulse Resp BP BP Pulse Ox 01/27/24 14:35 81 01/27/24 14:00 87 18 110/69 95 01/27/24 13:34 98.6 F 93 H 18 117/81 98 01/27/24 12:45 80 18 138/83 100 01/27/24 12:03 88 18 100 01/27/24 10:58 100 01/27/24 10:54 97.9 F 98 H 18 158/99 H 93 O2 Del Method 01/27/24 14:35 01/27/24 14:00 Room Air 01/27/24 13:34 Room Air 01/27/24 12:45 Room Air 01/27/24 12:03 Room Air 01/27/24 10:58 Room Air 01/27/24 10:54 Room Air Diagnostic Findings CT OF THE ABDOMEN AND PELVIS WITH CONTRAST CLINICAL HISTORY: Abdominal pain. COMPARISON STUDY: CT of the abdomen and pelvis August28/11/2017 and pelvic ultrasound April 08, 2017 TECHNIQUE: Following IV administration of 93 mL of Optiray, axial images of the abdomen and pelvis were obtained from the lung bases to the proximal femurs. Images were reviewed in the axial, sagittal, and coronal planes. IV contrast was administered without complication. Automated exposure control was utilized for the study. A dose lowering technique was utilized adhering to the principles of ALARA. CT DOSE: 655.81 mGy.cm FINDINGS: No pneumatosis, free air or portal venous gas is present. Mild biliary ductal dilatation is noted. The common bile duct measures 8 mm in caliber. There is periportal edema. The liver is mildly enlarged. There are no hepatic lesions. The gallbladder is moderately distended. Mild gallbladder wall thickening is present. There is mild edema/stranding within the timo hepatis. Main, left and right portal veins are patent. There is no pancreatic ductal dilatation. No peripancreatic fluid is present. The spleen, adrenal glands and kidneys are unremarkable. There is no hydronephrosis. A small amount of fluid within the pelvis is present. The caliber and wall thickness of small and large bowel are normal. IMPRESSION: 1. Mild biliary ductal dilatation. Correlation with obstructive liver function tests is recommended. 2. Moderate gallbladder distention with mild gallbladder wall thickening. Mild edema/stranding within the timo hepatis. These findings are nonspecific and right upper quadrant ultrasound is recommended to assess for acute cholecystitis. 3. Mild hepatomegaly. 4. No bowel obstruction. No bowel wall thickening. 5. Trace fluid within the pelvis. ACT 112: Negative or not required by law. Electronically signed by: Jarret Houston M.D. 01/27/2024 1:25 PM US gallbladder CLINICAL HISTORY: ? Choledocholithiasis COMPARISON STUDY: CT of the abdomen and pelvis performed earlier today. FINDINGS: Liver is mildly enlarged, measuring 20 cm in craniocaudal dimension. No hepatic lesions are identified. The main portal vein is patent with appropriately directed flow. Caliber of the common bile duct is at the upper limits of normal, measuring 6 mm in caliber. No common bile duct calculi are identified. The gallbladder is moderately distended. Small gallstones within the gallbladder are present. The gallbladder wall is thickened, measuring 7 mm in thickness. Sonographic John sign could not be assessed for given pain medication administration. Pancreas is unremarkable by sonography. There is no right hydronephrosis. IMPRESSION: 1. Top normal caliber common bile duct. No common bile duct calculi identified although distal common bile duct obscured. 2. Distended gallbladder with cholelithiasis and gallbladder wall thickening. Unable to assess for sonographic John sign. Acute cholecystitis cannot be excluded and a nuclear medicine hepatobiliary scan could be obtained. ACT 112: Negative or not required by law. Electronically signed by: Jarret Houston M.D. 01/27/2024 3:57 PM PG Care Time/CCT Total # of Minutes Spent Total Time Spent with Patient: Total time spent is greater than 50% in coordination of care (as documented) at patient's floor/unit and/or counseling patient: Coding Level of Care Code 37311 OFFICE CONSULT LVL M Diagnoses Elevated LFTs R79.89
--- NOTE | 2024-01-27 16:00 | Ultrasound Report ---
US gallbladder CLINICAL HISTORY: ? Choledocholithiasis COMPARISON STUDY: CT of the abdomen and pelvis performed earlier today. FINDINGS: Liver is mildly enlarged, measuring 20 cm in craniocaudal dimension. No hepatic lesions are identified. The main portal vein is patent with appropriately directed flow. Caliber of the common b ile duct is at the upper limits of normal, measuring 6 mm in caliber. No common bile duct calculi are identified. The gallbladder is moderately distended. Small gallstones within the gallbladder are pre sent. The gallbladder wall is thickened, measuring 7 mm in thickness. Sonographic John sign could n ot be assessed for given pain medication administration. Pancreas is unremarkable by sonography. Ther e is no right hydronephrosis. IMPRESSION: 1. Top normal caliber common bile duct. No common bile duct calculi identified although distal common bile duct obscured. 2. Distended gallbladder with cholelithiasis and gallbladder wall thickening. Unable to assess for so nographic John sign. Acute cholecystitis cannot be excluded and a nuclear medicine hepatobiliary sc an could be obtained. ACT 112: Negative or not required by law. Electronically signed by: Jarret Houston M.D. 01/27/2024 3:57 PM
--- NOTE | 2024-01-27 16:28 | Electrocardiogram Report ---
Test Reason : Blood Pressure : */* mmHG Vent. Rate : 80 BPM Atrial Rate : 80 BPM P-R Int : 144 ms QRS Dur : 80 ms QT Int : 382 ms P-R-T Axes : 64 76 49 degrees QTcB Int : 440 ms Normal sinus rhythm Normal ECG When compared with ECG of 12-Jul-2006 10:44, No significant change Confirmed by Celso Godinez ([id number]) on 01/27/2024 4:28:02 PM Referred By: Confirmed By: Celso Godinez
--- NOTE | 2024-01-27 17:22 | Magnetic Resonance Report ---
Clinical history: Epigastric pain. Nausea and vomiting Technique: Multiple T1 and T2-weighted magnetic resonance images were obtained of the abdomen without gadolinium contrast. MRCP images were obtained No prior examination is available for comparison Findings: No liver mass lesion is identified. The liver is enlarged measuring 20.6 cm craniocaudal. There is no sign of cirrhosis or significant fatty infiltration. There are multiple gallstones. There is mild gallbladder wall thickening and there is adjacent fluid, concerning for acute cholecystitis. No bile duct dilatation is noted. No definite stricturing or beading of the bile ducts is seen to suggest primary sclerosing cholangitis or other intrinsic bile duct pathology. There is no definite choledocholithiasis. The pancreatic duct is of normal caliber. There is no definite sign of pancreatic divisum or other congenital anomaly. There is no sign of acute pancreatitis. No definite pancreatic mass lesion is seen The spleen is of normal size. No focal splenic lesion is evident. The adrenal glands appear unremarkable. No renal mass lesion is seen. There is no hydronephrosis The visualized aorta is of normal caliber. No adenopathy is seen. There is a minimal amount of ascites. No definite abnormality of the abdominal wall musculature is identified. No hernia is seen Impression: 1. Cholelithiasis with apparent acute cholecystitis 2. No definite bile duct pathology 3. Minimal amount of ascites 4. Hepatomegaly Electronically signed by Jett Dewitt 01-27-2024 5:21 PM
[2024-01-27] MEDS: KETOROLAC TROMETHAMINE 15 MG/ML VIAL IV ONE (17:45)
--- NOTE | 2024-01-27 18:19 | History & Physical Report ---
Date of Service January 27, 2024 Assessment & Plan (1) Acute cholecystitis: Plan: Afebrile and normal WBC but current symptoms with elevated LFTs and imaging suggestive of this No current choledocholithiasis on imaging despite elevated LFTs therefore GI consult deferred Ceftriaxone + metronidazole NPO, IV fluids Hold PO meds for now and switch omeprazole to pantoprazole 40mg IV daily Consult surgery (2) Elevated LFTs: Plan: Secondary to acute cholecytitis +/- passed choledocholithiasis vs. intermittent obstructing stone in neck of gallbladder Monitor for improvement with AM labs Plan VTE Prophylaxis - Lovenox 40mg SQ daily Diet - NPO Disposition - observation to med/surg Admission and Anticipated Discharge Date Admission Date: January 27, 2024 History of Present Illness Chief Complaint: Abdominal pain Primary Care Provider: Bette Balbuena MD Kriss Robbins is a 53 year old female who presents to the ER with epigastric pain since 23:00 last night. No relief with Gasex or Motrin. Comes on in waves, radiation to back, initial relief with morphine given in the ER but now back with severity 10/10. Not positional. Worse on palpation. Associated nasuea. She has noticed her urine darker but otherwise no urinary symptoms. No fever or chills. No prior history of gallstones but strong family history of this. No aci d it taste in mouth. Allergies Allergy/AdvReac Type Severity Reaction Status Date / Time No Known Allergies Allergy Verified 01/27/24 18:40 Home Medications Medication Instructions Recorded Confirmed Type omeprazole 20 mg capsule,delayed 20 mg PO DAILY 10/31/18 01/27/24 History release acetaminophen 300 mg-codeine 30 mg 1 tab PO DAILY PRN Pain 01/27/24 01/27/24 History tablet bupropion HCl 300 mg 24 hr tablet, 300 mg PO DAILY 01/27/24 01/27/24 History extended release buspirone 10 mg tablet 5 mg PO TID 01/27/24 01/27/24 History clindamycin phosphate 1 % lotion 1 applic topical BID 01/27/24 01/27/24 History dextroamphetamine-amphetamine 20 20 mg PO DAILY 01/27/24 01/27/24 History mg tablet iron, carbonyl 15 mg chewable 15 mg PO DAILY 01/27/24 01/27/24 History tablet (Iron Chews) riboflavin (vitamin B2) 100 mg 100 mg PO DAILY 01/27/24 01/27/24 History tablet (Vitamin B-2) tirzepatide (weight loss) 2.5 2.5 mg subcut UD 01/27/24 01/27/24 History mg/0.5 mL subcutaneous pen injector (Zepbound) Past Med/Surg History Problem List (Updated 01/28/24 @ 06:42 by Manolo Cornelius MD) Vomiting (Acute) Abdominal pain (Acute) Acute cholecystitis (Acute) Elevated LFTs (Acute) Urinary urgency Urge and stress incontinence Medical History (Updated 01/28/24 @ 06:42 by Manolo Cornelius MD) Spontaneous complicated by delayed or excessive hemorrhage Snoring Obstructive sleep apnea Hypersomnolence FALLON (dyspnea on exertion) Chronic cough Asthma Surgical History H/O section H/O abdominoplasty Family History Mother Hypertension Father Nephrolithiasis Family/Other Breast cancer Diabetes Social History Smoking Status: Never smoker Second Hand Exposure: No; Do You Dip or Chew Tobacco: No; Tobacco Cessation Education Requested by Patient: No Hx Alcohol Use: Yes Alcohol type: wine Hx Substance Use: No Preferred Language: German Communication Ability: Effective Character Impersonator Required: No Beliefs That Will Affect Care: None marital status: Current Living Situation: Spouse Other Information That Helps Us Care for You: No Feels Safe at Home: Yes Safety Concerns: Feels Safe At This Time Assistive Devices: Contacts Review of Systems Review of Systems: All systems reviewed & are unremarkable except as noted in HPI & below Physical Exam Constitutional: WD/WN, vitals as above Eyes: + anicteric sclerae; normal pupil size ENMT: external ear and nose normal, oropharynx normal Respiratory: normal respiratory effort, lungs clear to auscultation Cardiovascular: RRR, no murmur, no edema Gastrointestinal (Abdomen): Inspection/Auscultation: abdomen normal to inspection; abdomen not distended Percussion/Palpation: + abdomen tender (RUQ pain), + guarding and abdomen soft; abdomen not rigid Musculoskeletal: no cyanosis or clubbing, extremities motor strength 5/5 Skin: no rashes, warm and dry Neurologic: moves all extremities and awake; not confused Psychiatric: A+Ox3, euthymic affect Results & Data Results & Data Vital Signs (Past 12 Hours) Vital Signs Temp Pulse Pulse Resp BP BP Pulse Ox 01/27/24 17:05 88 18 105/74 96 01/27/24 14:35 81 01/27/24 14:00 87 18 110/69 95 01/27/24 13:34 37.0 C 93 H 18 117/81 98 01/27/24 12:45 80 18 138/83 100 01/27/24 12:03 88 18 100 01/27/24 10:58 100 01/27/24 10:54 36.6 C 98 H 18 158/99 H 93 O2 Del Method 01/27/24 17:05 Room Air 01/27/24 14:35 01/27/24 14:00 Room Air 01/27/24 13:34 Room Air 01/27/24 12:45 Room Air 01/27/24 12:03 Room Air 01/27/24 10:58 Room Air 01/27/24 10:54 Room Air Laboratory Results Abnormal lab results 01/27/24 Range/Units 11:05 Neut # (Auto) 7.97 H (1.40-6.50) K/uL Lymph # (Auto) 0.48 L (1.20-3.40) K/uL D-Dimer 1350 H* (0-500) ug/L FEU Glucose 126 H (70-99(Fasting)) mg/dl Total Bilirubin 2.0 H (0.2-1.0) mg/dl AST 1123 H (13-39) U/L ALT 664 H (7-52) U/L Alkaline Phosphatase 157 H (34-104) U/L Diagnostic Findings XR chest 1V not portable HISTORY: 53 years-old Female Chest pain, nonspecific COMPARISON: 07/23/2018 TECHNIQUE: PA view the chest FINDINGS: Cardiomediastinal and hilar silhouettes appear normal. No pneumothorax, pleural effusion or airspace consolidation. The bones appear grossly intact. IMPRESSION: No acute process. CT OF THE ABDOMEN AND PELVIS WITH CONTRAST CLINICAL HISTORY: Abdominal pain. COMPARISON STUDY: CT of the abdomen and pelvis August or 28/11/2017 and pelvic ultrasound April 08, 2017 TECHNIQUE: Following IV administration of 93 mL of Optiray, axial images of the abdomen and pelvis were obtained from the lung bases to the proximal femurs. Images were reviewed in the axial, sagittal, and coronal planes. IV contrast was administered without complication. Automated exposure control was utilized for the study. A dose lowering technique was utilized adhering to the principles of ALARA. CT DOSE: 655.81 mGy.cm FINDINGS: No pneumatosis, free air or portal venous gas is present. Mild biliary ductal dilatation is noted. The common bile duct measures 8 mm in caliber. There is periportal edema. The liver is mildly enlarged. There are no hepatic lesions. The gallbladder is moderately distended. Mild gallbladder wall thickening is present. There is mild edema/stranding within the timo hepatis. Main, left and right portal veins are patent. There is no pancreatic ductal dilatation. No peripancreatic fluid is present. The spleen, adrenal glands and kidneys are unremarkable. There is no hydronephrosis. A small amount of fluid within the pelvis is present. The caliber and wall thickness of small and large bowel are normal. IMPRESSION: 1. Mild biliary ductal dilatation. Correlation with obstructive liver function tests is recommended. 2. Moderate gallbladder distention with mild gallbladder wall thickening. Mild edema/stranding within the timo hepatis. These findings are nonspecific and right upper quadrant ultrasound is recommended to assess for acute cholecystitis. 3. Mild hepatomegaly. 4. No bowel obstruction. No bowel wall thickening. 5. Trace fluid within the pelvis. MRCP Clinical history: Epigastric pain. Nausea and vomiting Technique: Multiple T1 and T2-weighted magnetic resonance images were obtained of the abdomen without gadolinium contrast. MRCP images were obtained No prior examination is available for comparison Findings: No liver mass lesion is identified. The liver is enlarged measuring 20.6 cm craniocaudal. There is no sign of cirrhosis or significant fatty infiltration. There are multiple gallstones. There is mild gallbladder wall thickening and there is adjacent fluid, concerning for acute cholecystitis. No bile duct dilatation is noted. No definite stricturing or beading of the bile ducts is seen to suggest primary sclerosing cholangitis or other intrinsic bile duct pathology. There is no definite choledocholithiasis. The pancreatic duct is of normal caliber. There is no definite sign of pancreatic divisum or other congenital anomaly. There is no sign of acute pancreatitis. No definite pancreatic mass lesion is seen The spleen is of normal size. No focal splenic lesion is evident. The adrenal glands appear unremarkable. No renal mass lesion is seen. There is no hydronephrosis The visualized aorta is of normal caliber. No adenopathy is seen. There is a minimal amount of ascites. No definite abnormality of the abdominal wall musculature is identified. No hernia is seen Impression: 1. Cholelithiasis with apparent acute cholecystitis 2. No definite bile duct pathology 3. Minimal amount of ascites 4. Hepatomegaly US gallbladder CLINICAL HISTORY: ? Choledocholithiasis COMPARISON STUDY: CT of the abdomen and pelvis performed earlier today. FINDINGS: Liver is mildly enlarged, measuring 20 cm in craniocaudal dimension. No hepatic lesions are identified. The main portal vein is patent with appropriately directed flow. Caliber of the common bile duct is at the upper limits of normal, measuring 6 mm in caliber. No common bile duct calculi are identified. The gallbladder is moderately distended. Small gallstones within the gallbladder are present. The gallbladder wall is thickened, measuring 7 mm in thickness. Sonographic John sign could not be assessed for given pain medication administration. Pancreas is unremarkable by sonography. There is no right hydronephrosis. IMPRESSION: 1. Top normal caliber common bile duct. No common bile duct calculi identified although distal common bile duct obscured. 2. Distended gallbladder with cholelithiasis and gallbladder wall thickening. Unable to assess for sonographic John sign. Acute cholecystitis cannot be excluded and a nuclear medicine hepatobiliary scan could be obtained. Medications Administered ER Medications Given: Normal saline 1000ml bolus Maalox 15ml PO Ondansetron 4mg IV Morphine 6mg IV Zosyn 4.5g IV Toradol 10mg IV Normal saline 1L bolus Morphine 4mg IV ECG Rate (beats per minute): 80 Rhythm: normal sinus Findings: no acute ischemic change Comparison ECG Date: from (July 12, 2006) Change: no significant change Code Status & VTE Plan Code Status Full VTE Prophylaxis Plan VTE Prophylaxis will be ordered: Yes PG Care Time/CCT Total # of Minutes Spent Total Time Spent with Patient: Total time spent is greater than 50% in coordination of care (as documented) at patient's floor/unit and/or counseling patient: Coding Level of Care Code 35208 INT INP/OBS CARE 2/55MIN Diagnoses Acute cholecystitis K81.0 Elevated LFTs R79.89
--- OUTSIDE RECORDS SUMMARY | 2024-01-27 18:24 | External Medical Summary | Continuity of Care Document ---
Author Name Unknown Organization [facility] [address] Address [address] [place], [place] [id number] Care Team Providers Care Conference And Event Organiser Name Role Phone Bette Balbuena Primary Care Physician [phone] [id number] Date(s): 11/22/23 - 11/22/23 [facility] [address], [address] [place] [address] [phone] Encounter Diagnosis ADD (attention deficit disorder)(Discharge Diagnosis) - 11/21/23 Chronic low back pain(Discharge Diagnosis) - 11/21/23 History of obesity(Discharge Diagnosis) - 11/22/23 Discharge Disposition: Home or Self Care Attending Physician: MD Balbuena Amy L Allergies, Adverse Reactions, Alerts No Known Allergies Assessment and Plan Extracted from: Title:Office Visit Note Author:MD Balbuena Amy L D ate:11/22/23 1.ADD (attention deficit d isorder) STATUS: Chronic, much improved with meds. DATA: hxreviewed. GOAL: Maintain improved focus & concentration. PLAN: Cont current dose of Adderall. Refill is not needed at this time, but discussed how to obtain refills, when needed. PDMP reviewed, no adverse information noted. Return in 3 months for monitoring of controlled substance. 2.Chronic low back pain STATUS: chronic, stable. DATA: hx & exam reviewed. GOAL: resolve pain. PLAN: discussed options of oral meds, vs PT/chiropractic, vs invasive tx (ie injections, surgery). WillstopTramadol& starttrialofTylenol #3. Shefeelsthat takingitonceaday would be sufficient, sothiswasprescribedaccordingly.We diddiscuss thatall opiateswill buildtolerance, suchthat continuedincreasesin meds/potencyis notpossible.Will refertopainclinicatH[place]fortheir assistance.Tramadol willbe discontinued.No adversedata per PDMP. Return in 3 months for recheck of pain meds. 3.History of obesity STATUS : chronic, improved. DATA : hx & weights reviewed. GOAL : maintainweight loss. PLAN : discussed weight loss, praised for her good work. ContinuemaintenanceZepbound, as well as continued vigilance with diet, & exercise. Return in3 months. Time:Total time spent with this patient on day of evaluation including chart review, ordering, education and coordination of care elements: _ 22minutes Immunizations Given and Recorded Vaccine Date Status Refusal Reason influenza virus vaccine, inactivated 11/22/23 Give n influenza virus vaccine, inactivated 11/23/20 Give n influenza virus vaccine, inactivated 11/20/19 Give n influenza virus vaccine, inactivated 12/01/18 Give n influenza virus vaccine, inactivated 12/11/17 Give n influenza virus vaccine, inactivated 12/08/16 Antonino rded influenza virus vaccine, inactivated 01/07/16 Antonino rded influenza virus vaccine, inactivated 02/21/15 Give n influenza virus vaccine, inactivated 01/08/13 Give n SARS-CoV-2 mRNA (Pfizer 12+) bivalent 1 12/01/21 R ecorded SARS-CoV-2 (COVID-19) mRNA BNT-162b2 vax 2 01/25/21 Recorded SARS-CoV-2 (COVID-19) mRNA BNT-162b2 vax 3 06/23/20 Recorded SARS-CoV-2 (COVID-19) mRNA BNT-162b2 vax 4 06/02/20 Recorded 1Result Comment: 2022-03-07: Historical information-source unspecified 2Result Comment: 2022-03-07: Historical information-source unspecified 3Result Comment: 2022-03-07: Historical information-source unspecified 4Result Comment: 2022-03-07: Historical information-source unspecified Medications Adderall 20 mg oral tablet Start: 10/23/23 3:58:00 PM EDT, 1 tab, PO, qAM, Disp# 30 tab, Refills: 0, disregard previous Rx for 10mg, Pharmacy: [id number] Start Date: 10/23/23 Status: Ordered buPROPion 300 mg/24 hours (XL) oral tablet, extended release Start: 04/15/23 8:02:00 AM EST, 1 tab, PO, q24h, Disp# 30 tab, Refills: 6, Pharmacy: [id number] Start Date: 04/15/23 Status: Ordered busPIRone 10 mg oral tablet Start: 04/15/23 8:02:00 AM EST, 0.5 tab, PO, tid, Disp# 45 tab, Refills: 6, Pharmacy: [id number] Start Date: 04/15/23 Status: Ordered ibuprofen 600 mg oral tablet Start: 08/14/23 9:03:00 PM EDT, 1 tab, PO, q8h, Disp# 90 tab, Refills: 0, PRN: as needed for pain, Pharmacy: [id number] Start Date: 08/14/23 Status: Ordered meclizine 25 mg oral tablet Start: 06/03/23 4:03:00 PM EDT, 1 tab, PO, tid, Disp# 45 tab, Refills: 3, PRN: IF NEEDED FOR DIZZINESS, Pharmacy: [id number] Start Date: 06/03/23 Status: Ordered MVI-12 Start: 10/09/12 2:29:00 PM EDT, 1,000 mg =, PO, Daily Start Date: 10/09/12 Status: Ordered omeprazole 20 mg oral delayed release capsule Start: 04/15/23 8:02:00 AM EST, 1 cap, PO, Daily, Disp# 30 cap, Refills: 6, Pharmacy: [id number] Start Date: 04/15/23 Status: Ordered Tylenol with Codeine #3 oral tablet Start: 11/22/23 9:34:00 AM EDT, 1 tab, PO, Daily, Disp# 30 tab, Refills: 0, PRN: as needed for pain,Pharmacy: [id number] Start Date: 11/22/23 Status: Ordered Zepbound 2.5 mg/0.5 mL subcutaneous solution Start: 07/24/23 12:54:00 PM EDT Start Date: 07/24/23 Status: Ordered Mental Status 11/22/23 Barriers to Learning one year None evide nt Mandatory Health Literacy Documentation Yes Health Literacy Communication Barriers N ever Primary Language Pakistani Problem List Condition Confirmation Course Effective Dates Status H ealth Status Informant Abnormal uterine bleeding (AUB) Confirmed Active Acute low back pain Confirmed Active Anxiety Confirmed Active Anxiety Confirmed Active ADD (attention deficit disorder) Confirmed Active Acute bilateral back pain Confirmed Active Acute bilateral back pain Confirmed Active Benign paroxysmal vertigo Confirmed Active Encounter for screening mammogram for breast cancer Confirmed Active Car sickness Confirmed Active Chronic cough Confirmed Active Chronic low back pain Confirmed Active Controlled substance agreement signed Confirmed Active DYSMENORRHEA Confirmed Active Epidemic vertigo Confirmed Active FAMILY HISTORY OF ASTHMA Confirmed Active MIKEY (stress urinary incontinence, female) Confirmed Active GERD (gastroesophageal reflux disease) Confirmed Active History of obesity Confirmed Active Borderline hyperlipidemia Confirmed Active Inattention Confirmed Active Insomnia Confirmed Active Lumbar back pain with radiculopathy affecting right lower extremity Confirmed Active Hot flashes, menopausal Confirmed Active Menopausal state Confirmed Active Vasomotor symptoms due to menopause Confirmed Active Headache, chronic migraine without aura Confirmed Active Neck pain Confirmed Active Obstructive sleep apnea Confirmed Active Obstructive sleep apnea Confirmed Active Annual physical exam Confirmed Active Papanicolaou smear, as part of routine gynecological examination Confirmed Active Seasonal allergies Confirmed Active Acute severe vertigo Confirmed Active Shoulder pain, right Confirmed Active Apnea, sleep Confirmed Active Neck strain Confirmed Active Frequent urinary incontinence Confirmed Active Weight disorder Confirmed Active Loss of weight Confirmed Active Loss of weight Confirmed Active Dry mouth Confirmed Active Diagnosis Diagnosis Type Effective Dates Health Status Cl inical Service Informant ADD (attention deficit disorder) Discharge Diagnosis 11/21/23 Non-Specified Chronic low back pain Discharge Diagnosis 11/21/23 Non-Specified History of obesity Discharge Diagnosis 11/22/23 Non-Specified Procedures Procedure Date Related Diagnosis Body Site Status Colonoscopy 1 05/25/22 Completed Mammogram 2 05/07/22 Completed Mammogram 3 05/04/21 Completed Mammogram 4 05/03/20 Completed Full sleep study 5 09/21/18 Comple daniela Chest x-ray 6 07/23/18 Completed Mammogram 7 04/01/[address] of abdomen and pelvis 8 04/08/17 Completed US EXAM PELVIC COMPLETE 9 04/08/17 Completed Shoulder X-ray 10 12/31/16 [facility] ed Mammogram - screening 11 05/21/14 Completed 12/27/97 Completed Tubal 1995 Comple daniela 1COLO to cecum nl, repeat 10 years 2No mammographic evidence of malignancy. 1 year screening is recommended. 3No mammographic evidence of malignancy. 1 year screening is recommended. 4No mammographic evidence of malignnacy. 1 year screening recommended. 5moderate obstructive sleep apnea 6No acute cardiopulmonary findings. 7No mammographic evidence of malignancy. 1 year screening mammogram is recommended. 8No acute process within the abdomen or pelvis. Normal appendix. No bowel obstruction. 91. The left ovary was not identified due to overlying bowel gas. 2. Normal uterus and right ovary. 10IMPRESSION: No fractures or dislocations identified. 11No mammographic evidence of malignancy. 1 year screening is recommended. 12I & D Vital Signs Most recent to oldest [Reference Range]: 1 Patient Weight 60.6 kg (11/22/23 9:17 AM) Temperature [36.5-37.9 DegC] 36.7 DegC (11/22/23 9:17 AM) Heart Rate 80 bpm (11/22/23 9:17 AM) Respiratory Rate 16 br/min (11/22/23 9:17 AM) Blood Pressure 124/72mmHg (11/22/23 9:17 AM) Cuff Pulse Pressure 52 mmHg (11/22/23 9:17 AM) BP Location # 1 Left Arm, Manual (11/22/23 9:17 AM) Social History Social History Type Response Smoking Status Never smoked cigaret kannan Sex Female Sex Representation Female (finding) FCM Outpt Note * MD Sree, Bette Cullen: PERFORM Event Display: FCM Outpt Note Authored Date: [id number] Chief Complaint 3 month follow-up History of Present Illness * This patient is being followed longitudinally for chronic serious medical problems by Dr. Bette Balbuena. Their most recent visitwith Dr. Balbuena:07/24/23. Here for recheckoffollowing concerns : 1)ADD - she feels that stimulant has been "life-changing." It has been very helpful with her focus & concentration, latasha since she is now working 2 jobs. She has noted no side effects of it. 2) Chronic back pain - this continues, & she's disappointed that it has not gotten better with weight loss. She feels that tramadol is no longer effective & wanted to try tylenolwith codeine. This has been effective for her daughter, who has osteogenesis imperfecta. 3) Obesity - she has lost a total of 107 pounds in last few years. Follows with weight loss clinic, & is now on maintenance dose of Zepbound. She is at her target weight. Physical Exam Vitals & Measurements T:36.7C HR:80(Monitored) RR:16 BP:124/72 WT:60.600kg(Dosing) WT:60.6kg PHQ2 Data(Data Documented on:11/22/2023 09:17) Emotional health assessment NEGATIVE General : Alert, in NAD. Respiratory : Speaks easily in full sentences, with no respiratory distress. Psych : answers all questions appropriately, mood seems normal. Assessment/Plan 1.ADD (attention deficit disorder) STATUS: Chronic, much improved with meds. DATA: hxreviewed. GOAL: Maintain improved focus & concentration. PLAN: Cont current dose of Adderall. Refill is not needed at this time, but discussed how to obtain refills, when needed. PDMP reviewed, no adverse information noted. Return in 3 months for monitoring of controlled substance. 2.Chronic low back pain STATUS: chronic, stable. DATA: hx & exam reviewed. GOAL: resolve pain. PLAN: discussed options of oral meds, vs PT/chiropractic, vs invasive tx (ie injections, surgery). WillstopTramadol& starttrialofTylenol #3. Shefeelsthat takingitonceaday would be sufficient, sothiswasprescribedaccordingly.We diddiscuss thatall opiates will buildtolerance, suchthat continuedincreasesin meds/potencyis notpossible.Will refertopainclinicatHersheyfortheir assistance.Tramadol willbe discontinued.No adversedata per PDMP. Return in 3 months for recheck of pain meds. 3.History of obesity STATUS : chronic, improved. DATA : hx & weights reviewed. GOAL : maintainweight loss. PLAN : discussed weight loss, praised for her good work. ContinuemaintenanceZepbound, as wellas continued vigilance with diet, & exercise. Return in3 months. Time:Total time spent with this patient on day of evaluation including chart review, ordering, education and coordination of care elements: _ 22minutes Problem List/Past Medical History Ongoing Abnormal uterine bleeding (AUB) Acute bilateral back pain Acute bilateral back pain Acute low back pain Acute severe vertigo ADD (attention deficit disorder) Annual physical exam Anxiety Anxiety Apnea, sleep Benign paroxysmal vertigo Borderline hyperlipidemia Car sickness Chronic cough Chronic low back pain Controlled substance agreement signed Dry mouth DYSMENORRHEA Encounter for screening mammogram for breast cancer Epidemic vertigo FAMILY HISTORY OF ASTHMA Frequent urinary incontinence GERD (gastroesophageal reflux disease) Headache, chronic migraine without aura History of obesity Hot flashes, menopausal Inattention Insomnia Loss of weight Loss of weight Lumbar back pain with radiculopathy affecting right lower extremity Menopausal state Neck pain Neck strain Obstructive sleep apnea Obstructive sleep apnea Papanicolaou smear, as part of routine gynecological examination Seasonal allergies Shoulder pain, right MIKEY (stress urinary incontinence, female) Vasomotor symptoms due to menopause Weight disorder Resolved Combined Finding related to Procedure/Surgical History Colonoscopy| Service Date: 05/25/2022Mammogram| Service Date: 05/07/2022Mammogram| ServiceDate: 05/04/2021Mammogram| Service Date: 05/03/2020Full sleep study| Service Date: 09/21/2018Chest x-ray| Service Date: 07/23/2018Mammogram| Service Date: 04/01/2018CT of abdomen and pe lvis| Service Date: 04/08/2017US EXAM PELVIC COMPLETE| Service Date: 04/08/2017Shoulder X-ray| Service Date: 12/31/2016Mammogram - screening| Service Date: 05/21/2014c-section| Service Date: 12/27/1997Tubal | Service Date: 1995 Medications acetaminophen-codeine(Tylenol with Codeine #3 oral tablet), 1 tab, PO, Daily, PRN acetaminophen-hydrocodone(Vicodin 5 mg-300 mg oral tablet), 1 tab, PO, q8h, PRN amphetamine-dextroamphetamine(Adderall 20 mg oral tablet), 20 mg= 1 tab, PO, qAM buPROPion(buPROPion 300 mg/24 hours (XL) oral tablet, extended release), 1 tab, PO, q24h busPIRone(busPIRone 10 mg oral tablet), 0.5 tab, PO, tid ibuprofen(ibuprofen 600 mg oral tablet), 600 mg= 1 tab, PO, q8h, PRN meclizine(meclizine 25 mg oral tablet), 1 tab, PO, tid, PRN multivitamin(MVI-12), 1000 mg, PO, Daily omeprazole(omeprazole 20 mg oral delayed release capsule), 1 cap, PO, Daily tirzepatide(Zepbound 2.5 mg/0.5 mL subcutaneous solution) Allergies NKA Social History Smoking Status Never smoked cigarettes Alcohol - No Risk Exercise - Occasional exercise Tobacco - Denies Tobacco Use Family History Breast cancer: Maternal Uncle, PGM, Paternal Aunt and Paternal Aunt. Cancer: Unknown. Cancer: Paternal Aunt. Diabetes: Unknown. Stroke: Unknown. Health Status Family Member(s) Immunizations Vaccine Date Status SARS-CoV-2 mRNA (Pfizer 12+) bivalent 12/01/2021 Recorded Comments : 2022-03-07: Historical information-source unspecified SARS-CoV-2 (COVID-19) mRNA BNT-162b2 vax 01/25/2021 Recorded Comments : 2022-03-07: Historical information-source unspecified influenza virus vaccine, inactivated 11/23/2020 Given SARS-CoV-2 (COVID-19) mRNA BNT-162b2 vax 06/23/2020 Recorded Comments : 2022-03-07: Historical information-source unspecified SARS-CoV-2 (COVID-19) mRNA BNT-162b2 vax 06/02/2020 Recorded Comments : 2022-03-07: Historical information-source unspecified influenza virus vaccine, inactivated 11/20/2019 Given influenza virus vaccine, inactivated 12/01/2018 Given influenza virus vaccine, inactivated 12/11/2017 Given influenza virus vaccine, inactivated 12/08/2016 Recorded influenza virus vaccine, inactivated 01/07/2016 Recorded influenza virus vaccine, inactivated 02/21/2015 Given influenza virus vaccine, inactivated 01/08/2013 Given Recommendations Health Maintenance Pending(in the next year) OverDue Body Mass Index due11/24/21and every 366day Adult Influenza Vaccine due09/08/23and every 1year Due Adult COVID-19 Vaccination due11/22/23Unknown Frequency Adult Social Determinants of Health Screening due11/22/23Unknown Frequency Adult Tdap/Td Vaccine due11/22/23Unknown Frequency Hepatitis C Screening due11/22/23One-time only Shingles Vaccine due11/22/23One-time only Satisfied(in the past 1 year) There are no satisfied recommendations within the defined date range Electronic Signature on File Electronically Reviewed/Signed by: Bette Balbuena MD Author Signature Dt/Tm:11/22/2023 09:51 AM 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 [address] [facility] Patient Care team information Care Team Personnel Name: MD Sree, Bette Cullen Position: Physician - Family Med Member Role: Primary Care Provider Address: [address] [place] [address] [address] [place] [address] [place] Care Team Related Persons Name: QUINN JOSEPH Name: CHERYL YORK Name: MARTINA YORK Name: SELWYN YORK
[2024-01-27] MEDS: MoRPHine SULFATE 4 MG/ML 1 ML CARP\\VIAL IV STA (19:10)
[2024-01-27] MEDS ORDERED: MoRPHine SULFATE 2 MG/ML CARP IV PRN (21:12)
[2024-01-27] MEDS: ENOXAPARIN INJ 40 MG/0.4 ML SYR SQ SCH (22:04)
[2024-01-27] MEDS: SODIUM CHLOR 0.45% + 20MEQ KCL 20 MEQ/1,000 ML BAG IV SCH (22:06)
[2024-01-27] MEDS: cefTRIAXone SODIUM 2,000 MG/50 ML BAG IV SCH (22:08)
[2024-01-27] MEDS: MoRPHine SULFATE 4 MG/ML 1 ML CARP\\VIAL IV PRN (22:16)
[2024-01-27] MEDS: metroNIDAZOLE 500 MG/100 ML BAG IV SCH (23:07)
[2024-01-28 07:21] LABS: Basophils # (auto) 0.03 K/uL (0.00-0.20); Basophils % (auto) 0.3 %; Eosinophils # (auto) 0.08 K/uL (0.00-0.50); Eosinophils % (auto) 0.8 %; Hematocrit (blood only) 30.5 % (37.0-47.0); Hemoglobin 10.3 g/dl (12.0-16.0); Immature Granulocytes # (auto) 0.05 K/uL (0.01-0.20); Immature Granulocytes % (auto) 0.5 %; Lymphocytes # (auto) 0.57 K/uL (1.20-3.40); Lymphocytes % (auto) 5.7 %; Mean Corpuscular Hemoglobin 31.3 pg (25.0-34.0); Mean Corpuscular Hgb Conc 33.8 g/dL (32.0-36.0); Mean Corpuscular Volume 92.7 fL (80.0-100.0); Monocytes # (auto) 0.47 K/uL (0.11-0.59); Monocytes % (auto) 4.7 %; Neutrophils # (auto) 8.74 K/uL (1.40-6.50); Platelet Count 147 K/uL (130-400); RDW Coefficient of Variation 12.8 % (11.5-14.5); RDW Standard Deviation 43.8 fL (36.4-46.3); Red Blood Count 3.29 M/uL (4.20-5.40); White Blood Count 9.94 K/ul (4.8-10.8)
[2024-01-28 07:35] LABS: Albumin Globulin Ratio 1.9 (0.9-2); Albumin Level 3.4 gm/dl (3.4-5.0); BUN Creatinine Ratio 12.7 (10-20); Bilirubin,Total 4.5 mg/dl (0.2-1.0); Calcium 7.9 mg/dl (8.6-10.3); Creatinine Clr Calc Pharmacy 97.8 ml/min; Globulin 1.8 gm/dl (2.5-4.0); Potassium 3.9 mmol/L (3.5-5.1); Total Protein 5.2 gm/dl (6.0-8.3)
[2024-01-28 08:50] LABS: Bilirubin Direct 3.6 mg/dl (0-0.2)
[2024-01-28] MEDS: PANTOprazole 40 MG/10 ML SYR IV SCH (09:43)
--- NOTE | 2024-01-28 10:48 | Surgery Progress Note ---
Date of Service January 28, 2024 Assessment & Plan (1) Elevated LFTs: Plan: t bili 4.5 , D. bili 3.6 consult GI may need ERCP prior to lap russel (2) Acute cholecystitis: Plan: discussed with pt cholecystectomy pending GI recommendations Keep NPO WBC wnl low grade fever 99, otherwise VSS will follow seen and examined with Dr. Hill Admission and Anticipated Discharge Date Admission Date: January 27, 2024 Supervising Physician Co-Signing Physician Notes Patient seen and examined, labs and imaging reviewed, agree with above. Epigastric pain rating to back, cholelithiasis with cholecystitis on imaging along with dilated common bile duct and obstructive pattern on LFTs. MRCP yesterday negative. Mildly tender palpation in epigastrium and right upper quadrant. Jaundiced. Afebrile with stable vitals. Bilirubin up to 4.5 from 2, direct bilirubin 3.6. AST and ALT downtrending. This still could represent choledocholithiasis, we will hold off on surgery today and wait to see what her labs do tomorrow. If still concern for obstructive pattern may recommend transfer for ERCP. Also consider cholecystectomy with possible cholangiogram. She may have clear liquids tonight, n.p.o. after midnight. Subjective abd pain less than admission Review of Systems Gastrointestinal: + abdominal pain; no nausea and no vomit ing Physical Exam Constitutional: cooperative and comfortable; no acute distress Respiratory: normal respiratory effort; no respiratory distress Cardiovascular: Rate/Rhythm: regular rate Gastrointestinal (Abdomen): Inspection/Auscultation: + abdominal surgical scar; abdomen not distended Percussion/Palpation: + abdomen tender (RUQ ) and abdomen soft Results & Data Vital Signs (Past 12 Hours) Vital Signs Temp Pulse Resp BP Pulse Ox O2 Del Method 01/28/24 07:12 99.0 F 81 16 98/60 L 90 Room Air Results CBC w Diff Results: RBC 3.29 M/uL (4.20-5.40) L 01/28/24 WBC 9.94 K/ul (4.8-10.8) 01/28/24 Hgb 10.3 g/dl (12.0-16.0) L 01/28/24 Hct 30.5 % (37.0-47.0) L 01/28/24 MCV 92.7 fL (80.0-100.0) 01/28/24 MCH 31.3 pg (25.0-34.0) 01/28/24 MCHC 33.8 g/dL (32.0-36.0) 01/28/24 RDW Standard Deviation 43.8 fL (36.4-46.3) 01/28/24 RDW Coefficient of Variation 12.8 % (11.5-14.5) 01/28/24 Plt Count 147 K/uL (130-400) 01/28/24 MPV 10.0 fL (9.4-12.4) 01/28/24 Neutrophils (%) (Auto) 88.0 % 01/28/24 Lymphocytes (%) (Auto) 5.7 % 01/28/24 Monocytes # (Auto) 0.47 K/uL (0.11-0.59) 01/28/24 Eosinophils # (Auto) 0.08 K/uL (0.00-0.50) 01/28/24 Immature Granulocyte % (Auto) 0.5 % 01/28/24 Neutrophils # (Auto) 8.74 K/uL (1.40-6.50) H 01/28/24 Lymphocytes # (Auto) 0.57 K/uL (1.20-3.40) L 01/28/24 Monocytes # (Auto) 0.47 K/uL (0.11-0.59) 01/28/24 Eosinophils # (Auto) 0.08 K/uL (0.00-0.50) 01/28/24 Basophils # (Auto) 0.03 K/uL (0.00-0.20) 01/28/24 Immature Granulocyte # (Auto) 0.05 K/uL (0.01-0.20) 4 Results CMP Results: Sodium 135 mmol/L (136-145) L 01/28/24 Potassium 3.9 mmol/L (3.5-5.1) 01/28/24 Chloride 104 mmol/L (98-107) 01/28/24 Carbon Dioxide 25 mmol/L (21-32) 01/28/24 Anion Gap 6 (3-11) 01/28/24 BUN 8 mg/dl (6-23) 01/28/24 Creatinine 0.63 mg/dl (0.6-1.2) 01/28/24 eGFR 106.67 01/28/24 Est GFR ( Amer) 113.4 04/08/17 Est GFR (Non-Af Amer) 97.8 04/08/17 BUN/Creatinine Ratio 12.7 (10-20) 01/28/24 Glucose 88 mg/dl (70-99(Fasting)) 01/28/24 Calcium 7.9 mg/dl (8.6-10.3) L 01/28/24 Total Bilirubin 4.5 mg/dl (0.2-1.0) H 01/28/24 Direct Bilirubin 3.6 mg/dl (0-0.2) H 01/28/24 AST 297 U/L (13-39) H 01/28/24 ALT 403 U/L (7-52) H 01/28/24 Alkaline Phosphatase 121 U/L (34-104) H 01/28/24 Total Protein 5.2 gm/dl (6.0-8.3) L 01/28/24 Albumin 3.4 gm/dl (3.4-5.0) 01/28/24 Globulin 1.8 gm/dl (2.5-4.0) L 01/28/24 Albumin/Globulin Ratio 1.9 (0.9-2) 01/28/24 PG Care Time/CCT Total # of Minutes Spent Total Time Spent with Patient: Total time spent is greater than 50% in coordination of care (as documented) at patient's floor/unit and/or counseling patient: Coding Level of Care Code 96820 SUB INP/OBS CARE 1/25MIN Diagnoses Elevated LFTs R79.89 Acute cholecystitis K81.0
--- NOTE | 2024-01-28 11:17 | Communication Note ---
Date of Service: January 28, 2024 Patient is a 53-year-old female who presents to the ER for epigastric abdominal pain. She had an US with distended gallbladder & cholelithiasis. Dr. Mcghee and I were contacted regarding this patient from the ER yesterday and provided recommendations to consider MRCP. Patient is seeing general surgery due to elevated LFTs and concern for chol edocholithiasis. A cholecystectomy was tentatively planned. T bili rising today to 4.5. D bili 3.6. AST 297, ALT 403. Alk phos 121. Surgery awaiting GI input regarding the need for ERCP. We do not have available ERCP/biliary services available at [facility]. There is no obvious bile duct pathology on MRCP, however given rising bilirubin if surgery is not proceeding with cholecystectomy without ERCP, patient would need to be transferred for this intervention.
[2024-01-28] MEDS: ACETAMINOPHEN 1,000 MG/100 ML VIAL IV STA (11:45)
--- NOTE | 2024-01-28 15:46 | Gastrointestinal Consultation ---
Date of Consultation January 28, 2024 Assessment & Plan (1) Acute cholecystitis: (2) Elevated LFTs: Plan We do not have available ERCP/biliary services available at [facility]. Patient continues on IV antibiotics. No clear imaging findings of ductal abnormalities, but bilirubin continues to rise. Surgery on board for cholecystectomy. If bili rising, would need to consider transfer for ERCP services. Trend LFTs. Supervising Physician Co-Signing Physician Notes I examined the patient and reviewed patient's chart , laboratory data and imaging studies. I agree with with assessment and plan of care as suggested by advanced practice provider. Patient likely passed a common bile duct stone. MRCP was negative yesterday yet total bilirubin has increased to 4.5 today. Clinically improved, less abdominal pain. Not much abdominal tenderness on examination. Discussed with Dr. Tom Hill: Repeat liver follow and proceed with cholecystectomy if LFTs improve. Otherwise consider transfer for ERCP. History of Present Illness Reason for Consultation: Elevated bilirubin, cholecystitis Attending Physician: Farida Rockwell MD History of Present Illness Patient is a 53-year-old female who presents to the ER for epigastric abdominal pain. She had an US with distended gallbladder & cholelithiasis. Dr. Mcghee and I were contacted regarding this patient from the ER yesterday and provided recommendations to consider MRCP. Patient is seeing general surgery due to elevated LFTs and concern for choledocholithiasis. A cholecystectomy was tentatively planned. T bili rising today to 4.5. D bili 3.6. AST 297, ALT 403. Alk phos 121. Surgery awaiting GI input regarding the need for ERCP. She is on IV antibiotics. Pain was worsened today after eating broth. Allergies Allergy/AdvReac Type Severity Reaction Status Date / Time No Known Allergies Allergy Verified 01/27/24 18:40 Home Medications Medication Instructions Recorded Confirmed Type omeprazole 20 mg capsule,delayed 20 mg PO DAILY 10/31/18 01/27/24 History release acetaminophen 300 mg-codeine 30 mg 1 tab PO DAILY PRN Pain 01/27/24 01/27/24 History tablet bupropion HCl 300 mg 24 hr tablet, 300 mg PO DAILY 01/27/24 01/27/24 History extended release buspirone 10 mg tablet 5 mg PO TID 01/27/24 01/27/24 History clindamycin phosphate 1 % lotion 1 applic topical BID 01/27/24 01/27/24 History dextroamphetamine-amphetamine 20 20 mg PO DAILY 01/27/24 01/27/24 History mg tablet iron, carbonyl 15 mg chewable 15 mg PO DAILY 01/27/24 01/27/24 History tablet (Iron Chews) riboflavin (vitamin B2) 100 mg 100 mg PO DAILY 01/27/24 01/27/24 History tablet (Vitamin B-2) tirzepatide (weight loss) 2.5 2.5 mg subcut UD 01/27/24 01/27/24 History mg/0.5 mL subcutaneous pen injector (Zepbound) Patient History Medical History (Updated 01/28/24 @ 06:42 by Manolo Cornelius MD) Spontaneous complicated by delayed or excessive hemorrhage Snoring Obstructive sleep apnea Hypersomnolence FALLON (dyspnea on exertion) Chronic cough Asthma Surgical History H/O section H/O abdominoplasty Family History Mother Hypertension Father Nephrolithiasis Family/Other Breast cancer Diabetes Social History Smoking Status: Never smoker Second Hand Exposure: No; Do You Dip or Chew Tobacco: No; Tobacco Cessation Education Requested by Patient: No Hx Alcohol Use: Yes Alcohol type: wine Hx Substance Use: No Preferred Language: Japanese Communication Ability: Unable Bleach Packer Required: No Beliefs That Will Affect Care: None marital status: Current Living Situation: Spouse Other Information That Helps Us Care for You: No Feels Safe at Home: Yes Safety Concerns: Feels Safe At This Time Assistive Devices: None Review of Systems Constitutional: no fever and no chills Gastrointestinal: + abdominal pain Psychiatric: no problem reported Physical Exam Constitutional: well developed Psychiatric: Orientation: alert and oriented x 3 Results & Data Vital Signs (Past 12 Hours) Vital Signs Temp Pulse Resp BP Pulse Ox O2 Del Method 01/28/24 14:31 36.5 C 68 16 112/72 96 Room Air 01/28/24 13:21 37 C 73 16 104/65 95 Room Air 01/28/24 07:12 37.2 C 81 16 98/60 L 90 Room Air PG Care Time/CCT Total # of Minutes Spent Total Time Spent with Patient: Total time spent is greater than 50% in coordination of care (as documented) at patient's floor/unit and/or counseling patient: Coding Level of Care Code 53947 IN/OBS CONSULT LVL 4,60M Diagnoses Acute cholecystitis K81.0 Elevated LFTs R79.89
[2024-01-28 15:51] LABS: Albumin Level 3.2 gm/dl (3.4-5.0); Bilirubin Direct 3.1 mg/dl (0-0.2); Bilirubin,Total 4.3 mg/dl (0.2-1.0); Total Protein 5.1 gm/dl (6.0-8.3)
--- NOTE | 2024-01-28 17:03 | Anesthesiology Consultation ---
Date of Service January 28, 2024 Assessment & Plan Chart Review Chart Review: Acceptable Risk for Surgery and Patient NOT seen in Pre Admission Testing Consults Requested none ASA ASA3 Proposed Anesthesia Anesthesia Type: General History Surgery Operation Date: 01/29/24 14:00 Proposed Procedures p Robotic Laparoscopic Cholecystectomy - Tom Hill DO, FACS Height/Weight Height: 5 ft 6 in Weight: 62.4 kg Allergies Allergy/AdvReac Type Severity Reaction Status Date / Time No Known Allergies Allergy Verified 01/27/24 18:40 Medications Home Medications Medication Instructions Recorded Confirmed Last Taken omeprazole 20 mg capsule,delayed 20 mg PO DAILY 10/31/18 01/27/24 01/26/24 release acetaminophen 300 mg-codeine 30 mg 1 tab PO DAILY PRN Pain 01/27/24 01/27/24 Unknown tablet bupropion HCl 300 mg 24 hr tablet, 300 mg PO DAILY 01/27/24 01/27/24 01/26/24 extended release buspirone 10 mg tablet 5 mg PO TID 01/27/24 01/27/24 01/26/24 clindamycin phosphate 1 % lotion 1 applic topical BID 01/27/24 01/27/24 01/26/24 dextroamphetamine-amphetamine 20 20 mg PO DAILY 01/27/24 01/27/24 01/26/24 mg tablet iron, carbonyl 15 mg chewable 15 mg PO DAILY 01/27/24 01/27/24 01/26/24 tablet (Iron Chews) riboflavin (vitamin B2) 100 mg 100 mg PO DAILY 01/27/24 01/27/24 01/26/24 tablet (Vitamin B-2) tirzepatide (weight loss) 2.5 2.5 mg subcut UD 01/27/24 01/27/24 01/21/24 mg/0.5 mL subcutaneous pen injector (Zepbound) Active Medications Generic Name Dose Route Start Last Admin Trade Name Freq PRN Reason Stop Dose Admin Enoxaparin Sodium 40 mg 01/27/24 21:30 01/27/24 22:04 Enoxaparin Inj 40 Mg/0.4 Ml Syr SQ 02/26/24 21:29 40 mg QPM MARY Administration Ceftriaxone Sodium 2,000 mg in 50 mls @ 100 mls/hr 01/27/24 22:00 01/27/24 23:06 Rocephin IV 02/06/24 21:59 Infused Q24H MARY Infusion Metronidazole 500 mg in 100 mls @ 100 mls/hr 01/27/24 22:00 01/28/24 14:35 Flagyl IV 02/06/24 21:59 Infused Q8H MARY Infusion Protocol Potassium Chloride/Sodium Chloride 20 meq in 1,000 mls @ 125 mls/hr 01/27/24 21:30 01/28/24 14:33 1/2 Nss + 20meq Kcl 1000ml IV 01/28/24 21:29 125 mls/hr .Q8H MARY Administration Pantoprazole Sodium 40 mg in 10 mls @ 5 mls/min 01/28/24 09:00 01/28/24 09:43 Protonix IV 02/27/24 08:59 5 mls/min DAILY MARY Administration Morphine Sulfate 4 mg 01/27/24 21:12 01/28/24 14:38 Morphine Sulfate 4 Mg/Ml 1 Ml Carp\Vial IV 02/10/24 21:11 4 mg Q3H PRN Administration Pain (6,7,8,9,10) Past Medical History Medical History Spontaneous complicated by delayed or excessive hemorrhage Snoring Obstructive sleep apnea Hypersomnolence FALLON (dyspnea on exertion) Chronic cough Asthma anemia Exercise / Class Metabolic Activity II 4-5 Yardwork/Stairs/Walk up hill Past Family History Family History Mother Hypertension Father Nephrolithiasis Family/Other Breast cancer Diabetes Past Surgical History Surgical History H/O section H/O abdominoplasty Past Anesthesia History No Hx of Anesthesia Complications and No Family Hx of Anesthesia Complications History of PONV No Hx of PONV and No Hx of Motion Sickness Social History Smoking Status: Never smoker Do You Dip or Chew Tobacco: No Hx Alcohol Use: Yes Alcohol type: wine alcohol intake frequency: 0-2 drinks per day Hx Substance Use: No Physical Exam Vital Signs Last Vital Signs Temp 36.5 C 01/28/24 14:31 Pulse 68 01/28/24 14:31 Resp 16 01/28/24 14:31 BP 112/72 11/19/24 14:31 Pulse Ox 96 01/28/24 14:31 O2 Del Method Room Air 01/28/24 14:31 Testing Laboratory Results 01/28/24 06:57 01/28/24 06:57 PT 10.4 Seconds (9.0-12.0) 01/27/24 11:05 INR 1.0 (0.9-1.1) 01/27/24 11:05 APTT 23 Seconds (21-31) 01/27/24 11:05 Electrocardiogram Date: 01/27/24 Findings: + NSR @ (@ 80) Chest X-Ray Date: 01/27/24 Findings: + NAD
--- NOTE | 2024-01-28 22:04 | Hospitalist Progress Note ---
Date of Service January 28, 2024 Assessment & Plan (1) Acute cholecystitis: Plan: Presented with colicky and radiating RUQ abdominal pain - Gallbladder US showed distended gallbladder with cholelithiasis and gallbladder wall thickening - MRCP showed cholelithiasis with acute cholecystitis. No definitive bile duct pathology noted - Elevated LFTs on admission improved with downtrending ALT and AST but bilirubin increased - GI consulted given concern for choledocholithiasis in setting of rising bilirubin > Trend bili - if continues to rise, transfer for ERCP - General surgery consulted > Plans for cholecystectomy if bili trends down - No leukocytosis, vitals stable, afebrile - Repeat LFTs in afternoon showed improvement in bili. Will repeat in AM - Continue Ceftriaxone + metronidazole - Clear liquids until midnight, then NPO pending surgery - Hold PO meds for now and continue pantoprazole 40mg IV daily -is on terzepatide as outpt and has lost a considerable amount of [id number] are associated with gallbladder issues but with removal of gallbladder, could likely resume this after recovery (2) Elevated LFTs: Plan: Secondary to acute cholecytitis +/- passed choledocholithiasis vs. intermittent obstructing stone in neck of gallbladder Monitor for improvement with AM labs Plan Mood disorder-resume bupropion and buspar GERD-continue PPI ADHD-hold Adderall Repeated LFTs Diet - clear liquid until midnight then NPO VTE Prophylaxis - Lovenox 40mg SQ daily CODE STATUS: Full code Admission and Anticipated Discharge Date Admission Date: January 27, 2024 Supervising Physician Co-Signing Physician Notes MARTIN Supervision Note: I did not personally see or examine the patient today, but I verified all braxton points of MARTIN Blake's assessment and plan with the following exceptions/additions: None Subjective Patient seen and evaluated at bedside. She reports her pain has improved compared to yesterday, noting the radiating pain to her back has resolved and her weakness is improved. She denies any nausea. She notes a strong family history of gallbladder disease. She reports disappointment in not having surgery today. We discussed why surgery was deferred today and why we are monitoring her labs. All questions were answered/addressed. No additional complaints or concerns at this time. Physical Exam Physical Exam: General: No acute distress, nondiaphoretic, well-developed, well-nourished. Skin: Warm, dry. Slight jaundiced appearance. Cardiac: Regular rate and rhythm without murmurs gallops or rubs. Pulm: Clear to auscultation bilaterally without wheezes, rales or rhonchi. No respiratory distress. 96% on room air. Abdominal: Soft, nondistended. Tender to palpation of RUQ. No rebound or guarding. Neuro: A&O x3. No focal neurological deficits. Results & Data Results & Data Vital Signs (Past 12 Hours) Vital Signs Temp Pulse Resp BP Pulse Ox O2 Del Method 01/28/24 21:59 97.9 F 59 L 16 104/67 93 Room Air 01/28/24 14:31 97.7 F 68 16 112/72 96 Room Air 01/28/24 13:21 98.6 F 73 16 104/65 95 Room Air Laboratory Results Reviewed CBC Reviewed CMP Reviewed LFTs PG Care Time/CCT Total # of Minutes Spent Total Time Spent with Patient: Total time spent is greater than 50% in coordination of care (as documented) at patient's floor/unit and/or counseling patient: Coding Level of Care Code 86631 SUB INP/OBS CARE 2/35MIN Diagnoses Acute cholecystitis K81.0 Elevated LFTs R79.89
[2024-01-29 06:17] LABS: Basophils # (auto) 0.03 K/uL (0.00-0.20); Basophils % (auto) 0.5 %; Eosinophils # (auto) 0.17 K/uL (0.00-0.50); Eosinophils % (auto) 2.9 %; Hematocrit (blood only) 29.7 % (37.0-47.0); Immature Granulocytes # (auto) 0.02 K/uL (0.01-0.20); Immature Granulocytes % (auto) 0.3 %; Lymphocytes # (auto) 0.69 K/uL (1.20-3.40); Lymphocytes % (auto) 11.7 %; Mean Corpuscular Hemoglobin 31.5 pg (25.0-34.0); Mean Corpuscular Hgb Conc 33.7 g/dL (32.0-36.0); Mean Corpuscular Volume 93.7 fL (80.0-100.0); Mean Platelet Volume 10.6 fL (9.4-12.4); Monocytes # (auto) 0.34 K/uL (0.11-0.59); Monocytes % (auto) 5.8 %; Neutrophils # (auto) 4.66 K/uL (1.40-6.50); Neutrophils % (auto) 78.8 %; Platelet Count 146 K/uL (130-400); RDW Coefficient of Variation 12.6 % (11.5-14.5); RDW Standard Deviation 43.4 fL (36.4-46.3); Red Blood Count 3.17 M/uL (4.20-5.40); White Blood Count 5.91 K/ul (4.8-10.8)
[2024-01-29 06:39] LABS: Albumin Globulin Ratio 1.7 (0.9-2); Albumin Level 3.3 gm/dl (3.4-5.0); BUN Creatinine Ratio 7.9 (10-20); Bilirubin,Total 3.5 mg/dl (0.2-1.0); Calcium 8.4 mg/dl (8.6-10.3); Creatinine Clr Calc Pharmacy 97.8 ml/min; Potassium 3.6 mmol/L (3.5-5.1); Total Protein 5.3 gm/dl (6.0-8.3)
[2024-01-29] MEDS: buPROPion XL 300 MG TABCR PO SCH (08:44)
[2024-01-29] MEDS: busPIRone 5 MG TAB PO SCH (08:45)
[2024-01-29] MEDS: ACETAMINOPHEN 1,000 MG/100 ML VIAL IV STA (08:45)
--- NOTE | 2024-01-29 10:26 | Gastroenterology Progress Note ---
Date of Service January 29, 2024 Assessment & Plan (1) Acute cholecystitis: Plan: Bilirubin down to 3.5 today. She continues on IV antibiotics (Ceftriaxone & Flagyl). -Patient is NPO and per nursing she is going for a cholecystectomy today. -Continue to monitor CMP. If hyperbilirubinemia doesn't resolve or if it worsens, consider ERCP. Admission and Anticipated Discharge Date Admission Date: January 27, 2024 Supervising Physician Co-Signing Physician Notes I reviewed patient's chart , laboratory data and imaging studies. I agree with with assessment and plan of care as suggested by advanced practice provider Subjective Patient is a 53 yo female with cholecystitis and elevated bilirubin. Bilirubin has reduced to 3.5 today. AST/ALT improved. She notes that her abdominal pain has improved. She has been NPO for possible cholecystectomy today. Review of Systems Constitutional: no fever and no chills Respiratory: no cough and no dyspnea Gastrointestinal: no abdominal pain Physical Exam Constitutional: well developed Respiratory: normal respiratory effort Gastrointestinal (Abdomen): Inspection/Auscultation: abdomen normal to inspection Percussion/Palpation: + abdomen tender and abdomen soft Psychiatric: Orientation: alert and oriented x 3 Results & Data Results & Data Vital Signs (Past 12 Hours) Vital Signs Temp Pulse Pulse Resp BP Pulse Ox O2 Del Method 01/29/24 08:21 36.8 C 70 18 126/75 99 Room Air 01/29/24 07:30 37.4 C 76 16 121/75 92 Room Air PG Care Time/CCT Total # of Minutes Spent Total Time Spent with Patient: Total time spent is greater than 50% in coordination of care (as documented) at patient's floor/unit and/or counseling patient: Coding Level of Care Code 55931 SUB INP/OBS CARE 3/50MIN Diagnoses Acute cholecystitis K81.0
[2024-01-29] MEDS ORDERED: MIDAZOLAM HCL 1 MG/ML 2ML VIAL ONE (10:42)
[2024-01-29] MEDS ORDERED: fentaNYL citrate PF 100 MCG/2 ML VIAL ONE (10:42)
--- NOTE | 2024-01-29 10:53 | Surgery Progress Note ---
Date of Service January 29, 2024 Assessment & Plan (1) Acute cholecystitis: Plan: Cholelithiasis with acute cholecystitis and suspected passed small gallstone. Her bilirubin is downtrending today and her other LFTs are continue to downtrend as well. plan for robotic assisted laparoscopic cholecystectomy with possible cholangiogram risks discussed to include but not limited to bleeding, infection, retained stone, bile leak, open surgery, damage to surrounding structures including bile duct, need for future or more extensive surgery, failure to treat symptoms, and risks of anesthesia. (2) Elevated LFTs: Admission and Anticipated Discharge Date Admission Date: January 27, 2024 Subjective Patient feel little better than she did yesterday, no events overnight. Physical Exam Constitutional: WD/WN, vitals as above Respiratory: normal respiratory effort, lungs clear to auscultation Cardiovascular: RRR, no murmur, no edema Gastrointestinal (Abdomen): Percussion/Palpation: + abdomen tender (Mild right upper quadrant tender to palpation); no guarding and abdomen not rigid Skin: + jaundice Results & Data Vital Signs (Past 12 Hours) Vital Signs Temp Pulse Pulse Resp BP Pulse Ox O2 Del Method 01/29/24 08:21 36.8 C 70 18 126/75 99 Room Air 01/29/24 07:30 37.4 C 76 16 121/75 92 Room Air Laboratory Results Laboratory Results - last 24 hr 01/28/24 01/29/24 15:19 05:19 WBC 5.91 RBC 3.17 L Hgb 10.0 L Hct 29.7 L MCV 93.7 MCH 31.5 MCHC 33.7 RDW Std Deviation 43.4 RDW Coeff of Shannan 12.6 Plt Count 146 MPV 10.6 Immature Gran % (Auto) 0.3 Neut % (Auto) 78.8 Lymph % (Auto) 11.7 Kemper % (Auto) 5.8 Eos % (Auto) 2.9 Baso % (Auto) 0.5 Neut # (Auto) 4.66 Lymph # (Auto) 0.69 L Kemper # (Auto) 0.34 Eos # (Auto) 0.17 Baso # (Auto) 0.03 Immature Gran # (Auto) 0.02 Sodium 136 Potassium 3.6 Chloride 104 Carbon Dioxide 25 Anion Gap 7 BUN 5 L Creatinine 0.63 Est Cr Clr Drug Dosing 97.8 eGFR 106.67 BUN/Creatinine Ratio 7.9 L Glucose 95 Calcium 8.4 L Total Bilirubin 4.3 H 3.5 H Direct Bilirubin 3.1 H AST 207 H 139 H ALT 333 H 276 H Alkaline Phosphatase 124 H 121 H Total Protein 5.1 L 5.3 L Albumin 3.2 L 3.3 L Globulin 2.0 L Albumin/Globulin Ratio 1.7 PG Care Time/CCT Total # of Minutes Spent Total Time Spent with Patient: Total time spent is greater than 50% in coordination of care (as documented) at patient's floor/unit and/or counseling patient: Coding Level of Care Code 88129 SUB INP/OBS CARE 235MIN Diagnoses Acute cholecystitis K81.0 Elevated LFTs R79.89
[2024-01-29] MEDS ORDERED: PROPOFOL IV EMULSION 10 MG/ML 20 ML VIAL IV ONE (10:55)
[2024-01-29] MEDS ORDERED: ROCURONIUM BROMIDE 10 MG/ML 5 ML VIAL IV ONE (10:55)
[2024-01-29] MEDS ORDERED: LIDOCAINE 2% 2 ML VIAL/AMP(20MG/ML) INFIL ONE (10:55)
[2024-01-29] MEDS ORDERED: ePHEDrine sulfate 50 MG/ML AMP IV PRN (11:29)
[2024-01-29] MEDS ORDERED: ATROPINE SULFATE 0.1 MG/ML 10ML SYR IV PRN (11:29)
[2024-01-29] MEDS ORDERED: ONDANSETRON INJ 2 MG/ML 2 ML VIAL IV PRN (11:29)
[2024-01-29] MEDS ORDERED: HYDROmorphone INJ 1 MG/ML SYRINGE IV PRN (11:29)
[2024-01-29] MEDS: INDOCYANINE GREEN 25 MG VIAL INJ ONE (13:25)
[2024-01-29] MEDS ORDERED: ONDANSETRON INJ 2 MG/ML 2 ML VIAL ONE (14:42)
[2024-01-29] MEDS ORDERED: DEXAMETHASONE SOD INJ 4 MG/ML VIAL ONE (14:42)
[2024-01-29] MEDS: BUPIVACAINE 0.5 % 5 MG/1 ML MPF 30ML VIAL ONE (14:49)
[2024-01-29] MEDS ORDERED: KETOROLAC 30 MG/ML VIAL ONE (14:53)
[2024-01-29] MEDS ORDERED: SUGAMMADEX SODIUM 200 MG/2 ML VIAL IV ONE (14:55)
--- NOTE | 2024-01-29 14:55 | Operative Report ---
PG Post Operative Report Pre & Post Diagnosis Operation Date: 01/29/24 14:00 Pre-Op Diagnosis: ACUTE CHOLECYSTITIS, ELEVATED LFTS Post-Op Diagnosis: ACUTE CHOLECYSTITIS, ELEVATED LFTS I identified the patient and participated in the time-out.: Yes Procedure Operation Date: 01/29/24 14:00 Actual Procedures p Robotic Laparoscopic Cholecystectomy(Not Applicable) - Tom Hill DO, ROXANA Surgeon Tom Hill DO, ROXANA Wall To Wall Carpet Installer Jeni Pabon Estimated Blood Loss 5 Findings Consistent with Post-Op Diagnosis Acute cholecystitis, critical view of safety obtained, cystic duct and artery doubly clipped and divided Specimens Gallbladder Anesthesia Type General Complications none Disposition Accompanied Patient To Recovery: No Disposition: Recovery Room Indications 53-year-old female admitted with cholelithiasis, acute cholecystitis, and elevated LFTs. MRCP was negative. Her LFTs were trended and her transaminases dropped but her bilirubin elevated. Today her bilirubin was down. After discussion of her options, plan for robotic cholecystectomy possible cholangiogram. The risks of the procedure were discussed, all questions were answered, and the patient agreed to proceed with surgery as planned. Description of Procedure The patient was properly identified, consented, and taken to the operating room where she was placed in the supine position. 2.5 mg of indocyanine green were administered IV approximately 45 min prior to the surgery. General endotracheal anesthesia was induced. SCDs and a safety belt were placed. Preoperative antibiotics were administered. The patient's abdomen was prepped and draped in the standard sterile fashion. A surgical timeout was performed and all parties were in agreement that this was the correct patient and procedure to be performed and we continued as planned. An incision was made just above the umbilicus and to the left of midline. Veress needle was inserted and saline drop test confirmed entry to the abdomen. The abdomen was insufflated with carbon dioxide which the patient tolerated incident. Veress needle was removed and the abdomen is entered using the Optiview technique and a 5 mm camera. The introducer was removed and the abdomen inspected. No damage from initial trocar placement or Veress needle placement was identified. There were no significant abnormalities to the 4 quadrants of the abdomen. 8 mm robotic ports were then placed on the left and right. An additional 5 mm speech language pathology assistant port was placed in the lateral right subcostal position. The patient was placed in reverse Trendelenburg position and rotated towards the left. The robot was then docked and the camera and robotic instruments were inserted. The gallbladder was acutely inflamed. There was some bile tinged peritoneal fluid. The dome of the gallbladder was grasped by the speech language pathology assistant and retracted towards the left upper quadrant and the infundibulum was retracted toward the right lower quadrant revealing Calot's triangle. Peritoneal attachments were taken down with electrocautery and blunt dissection. The cystic duct and artery were circumferentially dissected. A window of safety was obtained showing the cystic duct entering the gallbladder with no aberrant structures noted. We were able to identify the cystic duct utilizing the ICG. The cystic duct and artery were doubly clipped and divided. The gallbladder was then lifted off the gallbladder fossa with electrocautery. The right upper quadrant was irrigated and hemostasis was found to be good. The gallbladder was placed in an Endo Catch bag and removed through the one of the port sites. The instruments were removed and the robot was undocked. Extraction site fascia was closed with an 0 Vicryl suture utilizing the Jadiel-Phil device. The trochars were removed and the abdomen was allowed to collapse. The skin of all ports was closed with 4-0 Monocryl subcuticular sutures. Dermabond was placed over the wounds. The patient was extubated in the operating room and taken to the PACU where she recovered without apparent incident. All sponge, instrument and needle counts were correct at the conclusion of the procedure. The patient tolerated the procedure well. The physician's speech language pathology assistant was present and scrubbed for the entirety of the case and was essential in positioning the patient, prepping and draping, retraction and exposure, driving the laparoscope, exchange of the robotic instruments removal of the gallbladder, closure of the incisions, and placement of the dressings. I attest to the content of the Intraoperative Record and any orders documented therein. Any exceptions are noted below.
[2024-01-29] MEDS: fentaNYL citrate PF 100 MCG/2 ML VIAL IV PRN (15:32)
--- NOTE | 2024-01-29 15:41 | Anesthesiology Progress Note ---
Date of Service January 29, 2024 Anesthesia Post Procedure Vital Signs Vital Signs: Temp Pulse Pulse Resp BP Pulse Ox O2 Del Method 01/29/24 15:30 62 16 133/91 99 Room Air 01/29/24 15:20 65 14 134/85 100 Oxymask 01/29/24 15:10 36 C L 87 12 134/85 100 Oxymask 01/29/24 11:04 36.8 C 70 18 119/74 96 Room Air 01/29/24 08:21 36.8 C 70 18 126/75 99 Room Air 01/29/24 07:30 37.4 C 76 16 121/75 92 Room Air 01/28/24 21:59 36.6 C 59 L 16 104/67 93 Room Air O2 Flow Rate 01/29/24 15:30 01/29/24 15:20 4 01/29/24 15:10 6 01/29/24 11:04 01/29/24 08:21 01/29/24 07:30 01/28/24 21:59 Pain Intensity Right Chest: Pain Intensity: 10 Head: Pain Intensity: 9 Transfer of Care Handoff Completed per policy Notes Mental Status: alert / awake / arousable Patient Amnestic to Procedure: Yes Nausea / Vomiting: adequately controlled Pain: adequately controlled Airway Patency, RR, SpO2: stable & adequate BP & HR: stable & adequate Hydration State: stable & adequate Anesthetic Complications: no major complications apparent and Pt Satisfied with anesthetic care
[2024-01-29] MEDS ORDERED: oxyCODONE HCL IR 5 MG TAB (IMMEDIATE RELEASE) PO PRN (17:05)
[2024-01-29] MEDS: oxyCODONE HCL IR 5 MG TAB (IMMEDIATE RELEASE) PO PRN (17:11)
--- NOTE | 2024-01-29 17:29 | Hospitalist Progress Note ---
Date of Service January 29, 2024 Assessment & Plan (1) Acute cholecystitis: Plan: Presented with colicky and radiating RUQ abdominal pain - Gallbladder US showed distended gallbladder with cholelithiasis and gallbladder wall thickening - MRCP showed cholelithiasis with acute cholecystitis. No definitive bile duct pathology noted - No leukocytosis, vitals stable, afebrile - LFTs improving, bilirubin continues to decrease - General surgery consulted -- laparoscopic cholecystectomy on 01/[address] Hill; per review of operative report, EBL 5 cc, no complications noted - Continue Ceftriaxone + metronidazole - Clear liquids diet until advanced by surgery - Is on terzepatide as outpt and has lost a considerable amount of weight -- GLP-1s are associated with gallbladder issues but with removal of gallbladder, could likely resume this after recovery (2) Elevated LFTs: Plan: Secondary to acute cholecytitis +/- passed choledocholithiasis vs. intermittent obstructing stone in neck of gallbladder Improving, will continue to monitor postop Plan Chronic stable issues: - Mood disorder-resume bupropion and buspar - GERD-continue PPI - ADHD-hold Adderall VTE Prophylaxis - Lovenox 40mg SQ daily CODE STATUS: Full code Admission and Anticipated Discharge Date Admission Date: January 29, 2024 Supervising Physician Co-Signing Physician Notes PA Supervision Note: I did not personally see or examine the patient today, but I verified all braxton points of MARTIN Blake's assessment and plan with the following exceptions/additions: None Subjective Patient seen and evaluated in PACU postop from lap russel. Patient reports feeling well, only noting feeling a bit groggy from the anesthesia. She denies any abdominal pain, nausea, chest pain, shortness of breath, or headache at this time. Physical Exam Physical Exam: General: No acute distress, nondiaphoretic, well-developed, well-nourished. Skin: Warm, dry. Slight jaundiced appearance. Cardiac: Regular rate and rhythm without murmurs gallops or rubs. Pulm: Clear to auscultation bilaterally without wheezes, rales or rhonchi. No respiratory distress. 94% on room air. Abdominal: Soft, nondistended. Bowel sounds present. Neuro: A&O x3. No focal neurological deficits. Results & Data Results & Data Vital Signs (Past 12 Hours) Vital Signs Temp Pulse Pulse Resp BP Pulse Ox O2 Del Method 01/29/24 16:43 99.0 F 63 16 124/76 94 Room Air 01/29/24 16:10 97.5 F L 70 16 130/80 96 Room Air 01/29/24 16:00 64 16 122/78 96 Nasal Cannula 01/29/24 15:50 98.4 F 76 14 130/78 99 Nasal Cannula 01/29/24 15:40 56 L 16 123/81 92 Nasal Cannula 01/29/24 15:30 62 16 133/91 99 Room Air 01/29/24 15:20 65 14 134/85 100 Oxymask 01/29/24 15:10 96.8 F L 87 12 134/85 100 Oxymask 01/29/24 11:04 98.2 F 70 18 119/74 96 Room Air 01/29/24 08:21 98.2 F 70 18 126/75 99 Room Air 01/29/24 07:30 99.3 F 76 16 121/75 92 Room Air O2 Flow Rate 01/29/24 16:43 01/29/24 16:10 01/29/24 16:00 1 01/29/24 15:50 1 01/29/24 15:40 2 01/29/24 15:30 01/29/24 15:20 4 01/29/24 15:10 6 01/29/24 11:04 01/29/24 08:21 01/29/24 07:30 Laboratory Results Reviewed CBC Reviewed CMP PG Care Time/CCT Total # of Minutes Spent Total Time Spent with Patient: Total time spent is greater than 50% in coordination of care (as documented) at patient's floor/unit and/or counseling patient: Coding Level of Care Code 48411 SUB INP/OBS CARE 2/35MIN Diagnoses Acute cholecystitis K81.0 Elevated LFTs R79.89
[2024-01-29] MEDS ORDERED: ACETAMINOPHEN 325 MG TAB PO PRN (17:38)
[2024-01-30 04:09] VITALS: RESP 16
[2024-01-30 07:04] VITALS: O2SAT 99
[2024-01-30 07:30] LABS: Basophils # (auto) 0.02 K/uL (0.00-0.20); Basophils % (auto) 0.3 %; Hematocrit (blood only) 30.3 % (37.0-47.0); Hemoglobin 10.4 g/dl (12.0-16.0); Immature Granulocytes # (auto) 0.03 K/uL (0.01-0.20); Immature Granulocytes % (auto) 0.4 %; Lymphocytes # (auto) 0.81 K/uL (1.20-3.40); Lymphocytes % (auto) 10.7 %; Mean Corpuscular Hemoglobin 31.5 pg (25.0-34.0); Mean Corpuscular Hgb Conc 34.3 g/dL (32.0-36.0); Mean Corpuscular Volume 91.8 fL (80.0-100.0); Mean Platelet Volume 10.6 fL (9.4-12.4); Monocytes # (auto) 0.55 K/uL (0.11-0.59); Monocytes % (auto) 7.3 %; Neutrophils # (auto) 6.16 K/uL (1.40-6.50); Neutrophils % (auto) 81.3 %; Platelet Count 160 K/uL (130-400); RDW Coefficient of Variation 12.3 % (11.5-14.5); RDW Standard Deviation 41.5 fL (36.4-46.3); White Blood Count 7.57 K/ul (4.8-10.8)
[2024-01-30 07:52] LABS: Albumin Globulin Ratio 1.5 (0.9-2); Albumin Level 3.3 gm/dl (3.4-5.0); BUN Creatinine Ratio 10.6 (10-20); Bilirubin,Total 1.7 mg/dl (0.2-1.0); Calcium 8.5 mg/dl (8.6-10.3); Creatinine Clr Calc Pharmacy 131.1 ml/min; Globulin 2.2 gm/dl (2.5-4.0); Potassium 3.9 mmol/L (3.5-5.1); Total Protein 5.5 gm/dl (6.0-8.3)
[2024-01-30 08:07] VITALS: BP 133/85; PULSE 72; TEMP 98.4
[2024-01-30] MEDS: ONDANSETRON INJ 2 MG/ML 2 ML VIAL IV PRN (09:57)
--- NOTE | 2024-01-30 11:07 | Surgery Progress Note ---
Date of Service January 30, 2024 Assessment & Plan (1) Status post laparoscopic cholecystectomy: Plan: status post robotic cholecystectomy, POD #1, doing well. Bilirubin and LFTs normalizing Okay to DC to home from general surgery standpoint activity as tolerated, no heavy lifting or strenuous activity for 2 weeks follow up in 2 weeks in the general surgery clinic return precautions given call with questions or concerns Admission and Anticipated Discharge Date Admission Date: January 29, 2024 Subjective POD #1 robotic cholecystectomy for cholecystitis. Feels much better, minimal pain, tolerating diet. Physical Exam Constitutional: WD/WN, vitals as above Gastrointestinal (Abdomen): normal bowel sounds, soft, nontender, no hepatosplenomegaly Inspection/Auscultation: + abdominal surgical incision (Healing well, no infection) Results & Data Vital Signs (Past 12 Hours) Vital Signs Temp Pulse Pulse Resp BP Pulse Ox O2 Del Method 01/30/24 08:00 36.9 C 72 16 133/85 99 Room Air 01/30/24 07:00 37.0 C 75 16 116/79 99 Room Air 01/30/24 04:08 36.4 C L 72 16 111/69 98 Room Air 01/30/24 00:03 36.6 C 73 18 124/62 97 Room Air Laboratory Results Laboratory Results - last 24 hr 01/30/24 06:34 WBC 7.57 RBC 3.30 L Hgb 10.4 L Hct 30.3 L MCV 91.8 MCH 31.5 MCHC 34.3 RDW Std Deviation 41.5 RDW Coeff of Shannan 12.3 Plt Count 160 MPV 10.6 Immature Gran % (Auto) 0.4 Neut % (Auto) 81.3 Lymph % (Auto) 10.7 [place] % (Auto) 7.3 Eos % (Auto) 0.0 Baso % (Auto) 0.3 Neut # (Auto) 6.16 Lymph # (Auto) 0.81 L [place] # (Auto) 0.55 Eos # (Auto) 0.00 Baso # (Auto) 0.02 Immature Gran # (Auto) 0.03 Sodium 141 Potassium 3.9 Chloride 107 Carbon Dioxide 28 Anion Gap 6 BUN 5 L Creatinine 0.47 L Est Cr Clr Drug Dosing 131.1 eGFR 114.47 BUN/Creatinine Ratio 10.6 Glucose 97 Calcium 8.5 L Total Bilirubin 1.7 H D AST 80 H ALT 212 H Alkaline Phosphatase 110 H Total Protein 5.5 L Albumin 3.3 L Globulin 2.2 L Albumin/Globulin Ratio 1.5 PG Care Time/CCT Total # of Minutes Spent Total Time Spent with Patient: Total time spent is greater than 50% in coordination of care (as documented) at patient's floor/unit and/or counseling patient: Coding Level of Care Code None Diagnoses Status post laparoscopic cholecystectomy Z90.49
--- NOTE | 2024-01-30 11:10 | Surgery Progress Note ---
Date of Service January 30, 2024 Assessment & Plan (1) Status post laparoscopic cholecystectomy: Admission and Anticipated Discharge Date Admission Date: January 29, 2024 Subjective Feels much better, minimal pain, tolerating diet no emesis had some nausea this am Review of Systems Constitutional: no fever and no chills Respiratory: no dyspnea Cardiovascular: no chest pain Gastrointestinal: + nausea; no abdominal pain and no vomit ing Musculoskeletal: no muscle weakness Psychiatric: no confusion Physical Exam Constitutional: cooperative and comfortable; no acute distress Respiratory: normal respiratory effort; no respiratory distress Cardiovascular: Rate/Rhythm: regular rate Gastrointestinal (Abdomen): Inspection/Auscultation: + abdominal surgical incision (dermabond CDI ); abdomen not distended Psychiatric: A+Ox3, euthymic affect Results & Data Vital Signs (Past 12 Hours) Vital Signs Temp Pulse Pulse Resp BP Pulse Ox O2 Del Method 01/30/24 08:00 98.4 F 72 16 133/85 99 Room Air 01/30/24 07:00 98.6 F 75 16 116/79 99 Room Air 01/30/24 04:08 97.5 F L 72 16 111/69 98 Room Air 01/30/24 00:03 97.9 F 73 18 124/62 97 Room Air Results CBC w Diff Results: RBC 3.30 M/uL (4.20-5.40) L 01/30/24 WBC 7.57 K/ul (4.8-10.8) 01/30/24 Hgb 10.4 g/dl (12.0-16.0) L 01/30/24 Hct 30.3 % (37.0-47.0) L 01/30/24 MCV 91.8 fL (80.0-100.0) 01/30/24 MCH 31.5 pg (25.0-34.0) 01/30/24 MCHC 34.3 g/dL (32.0-36.0) 01/30/24 RDW Standard Deviation 41.5 fL (36.4-46.3) 01/30/24 RDW Coefficient of Variation 12.3 % (11.5-14.5) 01/30/24 Plt Count 160 K/uL (130-400) 01/30/24 MPV 10.6 fL (9.4-12.4) 01/30/24 Neutrophils (%) (Auto) 81.3 % 01/30/24 Lymphocytes (%) (Auto) 10.7 % 01/30/24 Monocytes # (Auto) 0.55 K/uL (0.11-0.59) 01/30/24 Eosinophils # (Auto) 0.00 K/uL (0.00-0.50) 01/30/24 Immature Granulocyte % (Auto) 0.4 % 01/30/24 Neutrophils # (Auto) 6.16 K/uL (1.40-6.50) 01/30/24 Lymphocytes # (Auto) 0.81 K/uL (1.20-3.40) L 01/30/24 Monocytes # (Auto) 0.55 K/uL (0.11-0.59) 01/30/24 Eosinophils # (Auto) 0.00 K/uL (0.00-0.50) 01/30/24 Basophils # (Auto) 0.02 K/uL (0.00-0.20) 01/30/24 Immature Granulocyte # (Auto) 0.03 K/uL (0.01-0.20) 4 Results CMP Results: Sodium 141 mmol/L (136-145) 01/30/24 Potassium 3.9 mmol/L (3.5-5.1) 01/30/24 Chloride 107 mmol/L (98-107) 01/30/24 Carbon Dioxide 28 mmol/L (21-32) 01/30/24 Anion Gap 6 (3-11) 01/30/24 BUN 5 mg/dl (6-23) L 01/30/24 Creatinine 0.47 mg/dl (0.6-1.2) L 01/30/24 eGFR 114.47 01/30/24 Est GFR ( Amer) 113.4 04/08/17 Est GFR (Non-Af Amer) 97.8 04/08/17 BUN/Creatinine Ratio 10.6 (10-20) 01/30/24 Glucose 97 mg/dl (70-99(Fasting)) 01/30/24 Calcium 8.5 mg/dl (8.6-10.3) L 01/30/24 Total Bilirubin 1.7 mg/dl (0.2-1.0) H 01/30/24 Direct Bilirubin 3.1 mg/dl (0-0.2) H 01/28/24 AST 80 U/L (13-39) H 01/30/24 ALT 212 U/L (7-52) H 01/30/24 Alkaline Phosphatase 110 U/L (34-104) H 01/30/24 Total Protein 5.5 gm/dl (6.0-8.3) L 01/30/24 Albumin 3.3 gm/dl (3.4-5.0) L 01/30/24 Globulin 2.2 gm/dl (2.5-4.0) L 01/30/24 Albumin/Globulin Ratio 1.5 (0.9-2) 01/30/24 PG Care Time/CCT Total # of Minutes Spent Total Time Spent with Patient: Total time spent is greater than 50% in coordination of care (as documented) at patient's floor/unit and/or counseling patient: Coding Diagnoses Status post laparoscopic cholecystectomy Z90.49
--- NOTE | 2024-01-30 12:27 | Discharge Summary ---
Discharge Summary Date of Service January 30, 2024 Principal Dx & Hospital Course #1 = Principal Diagnosis (1) Acute cholecystitis: Presented with colicky and radiating RUQ abdominal pain - Gallbladder US showed distended gallbladder with cholelithiasis and gallbladder wall thickening - MRCP showed cholelithiasis with acute cholecystitis. No definitive bile duct pathology noted - No leukocytosis, vitals stable, afebrile - LFTs improving, bilirubin continues to decrease - Treated with Ceftriaxone + metronidazole leading to surgery. No further antibiotics needed postop per surgery - General surgery consulted -- laparoscopic cholecystectomy on 01/[address] Hill; per review of operative report, EBL 5 cc, no complications noted - Follow-up with surgery outpatient 2 weeks postop - Is on terzepatide as outpt and has lost a considerable amount of weight -- GLP-1s are associated with gallbladder issues but with removal of gallbladder, could likely resume this after recovery (2) Elevated LFTs: Secondary to acute cholecytitis +/- passed choledocholithiasis vs. intermittent obstructing stone in neck of gallbladder Much improved postop Plan Chronic stable issues: - Mood disorder-resume bupropion and buspar - GERD-continue PPI - ADHD-hold Adderall VTE Prophylaxis - Lovenox 40mg SQ daily CODE STATUS: Full code Notes For Next Care Provider Patient presented with acute cholecystitis and had laparoscopic cholecystectomy on 01/[address] Hill, no perioperative complications Admission HPI Per Admitting Provider Kriss Robbins is a 53 year old female who presents to the ER with epigastric pain since 23:00 last night. No relief with Gasex or Motrin. Comes on in waves, radiation to back, initial relief with morphine given in the ER but now back with severity 10/10. Not positional. Worse on palpation. Associated nasuea. She has noticed her urine darker but otherwise no urinary symptoms. No fever or chills. No prior history of gallstones but strong family history of this. No acid it taste in mouth. Discharge Exam General: No acute distress, nondiaphoretic, well-developed, well-nourished. Skin: Warm, dry. Slight jaundiced appearance. Cardiac: Regular rate and rhythm without murmurs gallops or rubs. Pulm: Clear to auscultation bilaterally without wheezes, rales or rhonchi. No respiratory distress. 99% on room air. Abdominal: Soft, nondistended. Minimal tenderness to palpation. Bowel sounds present. Surgical sites healing well and covered in Dermabond. Neuro: A&O x3. No focal neurological deficits. Discharge Plan Discharge Items Patient Disposition: Home - Self-Care Reason For Visit: ACUTE CHOLECYSTITIS, ELEVATED LFTS Discharge Diagnosis: laparoscopic cholecystectomy Activity: Per Instructions section Lifting: No more than 10 pounds Bathing Comment: may shower; no soaking in tubs/pools x 2 weeks Exercise/Sports: Wait until after follow-up appointment Driving/Machine Use: no driving while taking narcotics for pain Non-emergency contact: Primary Care Provider and Surgeon Call non-emergency contact if: you have any medication questions, your symptoms worsen, your pain is not controlled, you have a fever, your temperature is above 101.5, your wound has increased redness, your wound has increased drainage and your wound pain has increased Follow-up/Referrals: Tom Hill DO, FACS [Physician] - 02/13/24 10:30 am (please call to schedule follow up in clinic within 2 weeks) Bette Balbuena MD [Primary Care Provider] - (Please follow up within 1-2 weeks) Diet: Regular Addtl Attending Provider Instructions: Kriss, You were admitted to the hospital with acute cholecystitis. You had a la paroscopic cholecystectomy (removal of your gallblader) on 01/29/[address] Hill. You tolerated this surgery well and there were no complications. Upon discharge from the hospital: * Take Tylenol/Ibuprofen as your first line pain medication. * Take oxycodone 5 mg every 4 hours NEEDED for breakthrough pain. * Follow the instructions from your surgical team as listed below. * Follow-up with your surgical team in 2 weeks outpatient. You can call their office to schedule your appointment at [phone]. Please return to the hospital if you experience any of the following: Fever of 100.5 F or higher, yellowing of your eyes or skin (jaundice), redness/swelling/fluid leaking from your incision sites, dark or rust colored urine, stool that is light in color instead of brown, worsening belly pain, rectal bleeding, shortness of breath, difficulty breathing, chest pain, dizziness, or passing out. It was a pleasure taking care of you while you were in the hospital, COLT Mckinney Precision Inspector Provider Instructions: SPECIAL CARE INSTRUCTIONS: * You have skin glue over your incisions called dermabond. you may shower with this on. It will tend to dissolve and fall off within a couple weeks. Do not pick at the skin glue * You may remove your outer surgical dressings on . You will have small white bandages on underneath that are over your incisions. You may shower with these on. They will tend to fall off on their own within 7-10 days. Cover incisions and change daily for comfort/drainage. * You may shower . NO soaking in pools or baths for 2 weeks * No lifting greater than 10lbs. No strenuous exercise until cleared by surgeon. Light walking is accepted. * No driving while taking narcotic pain medication; wait at least 3 days * No drinking alcohol while taking narcotic pain medication * May use Ibuprofen/Tylenol over the counter for pain as tolerated. Do not exceed 3grams of Tylenol per 24 hours * Expect some swelling and bruising. * Diet- you may resume your regular diet Call your doctor if: * Temperature above 101 degrees, nausea/vomiting, fever/chills * Pain not relieved by pain medicine ordered * There is increased drainage or redness from any incision * You have any unanswered questions or concerns [phone]. FOLLOW UP VISIT: If not already scheduled, please call the office for a follow-up visit. Office Pending Studies at Discharge: Yes Studies:: surgical pathology Stand-Alone Forms: My [facility], Pain - Opioid Pain Management, Smoking Cessation Medications and DC Order Prescriptions: New oxycodone 5 mg Tablet 5 mg PO Q4H PRN (Reason: pain) Qty: 10 0RF Continued omeprazole 20 mg capsule,delayed release(DR/EC) 20 mg PO DAILY riboflavin (vitamin B2) [Vitamin B-2] 100 mg Tablet 100 mg PO DAILY acetaminophen-codeine 300-30 mg tablet 1 tab PO DAILY PRN (Reason: Pain) Iron Chews 15 mg Tablet,Chewable 15 mg PO DAILY buspirone 10 mg tablet 5 mg PO TID dextroamphetamine-amphetamine 20 mg tablet 20 mg PO DAILY clindamycin phosphate 1 % lotion 1 applic TOPICAL BID bupropion HCl 300 mg tablet extended release 24 hr 300 mg PO DAILY Zepbound 2.5 mg/0.5 mL pen injector 2.5 mg subcut UD Rx Instructions: Every 10-12 days as directed Discharge Orders: Discharge Order (Routine); Ordered 01/30/24 Ordered By: Sue Lu/Other Patient Handouts: DVT Post Op Prevention, Cholecystectomy Dc Admission Data Admit Date/Time: 01/29/24 11:01 Attending Provider: Farida Rockwell Admit Provider: Farida Rockwell Primary Care Provider: Bette Balbuena Other Providers: Tom Hill; Manolo Cornelius; Ameya Bryant; Ced Martinez; Caitlyn Nolan; Viola Villanueva; Karen Beach; Nila Keith; Megan New; Hadley Myles; Alfred Oden; Gabby Richards; Abdias Bledsoe; Chelsea Gaffney; Mira Mcmahan; Cesilia Larsen; Cony Matthews; Leo Glaser; Jd Mccarty; Ashli Cancino; Adarsh Hunter Jr; Byron Mcghee.; Jozef Miller; Jagjit Brown; Jonathan Awad; Diana Terry; Patrice Strauss I; Aida Medina Other Interventions: Discharge Summary Assessment (RN) Last Done: 01/30/24 12:37 Hospital Stay Data Consultations 01/27/24 17:31 Consult General Surgery Stat ED Decision to Admit Stat 01/28/24 08:01 Consult Gastroenterology Routine Procedures Performed Operation Date: 01/29/24 14:00 Actual Procedures p Robotic Laparoscopic Cholecystectomy(Not Applicable) - Tom Hill DO, FACS Diagnostic Imagining Performed 01/27/24 12:34 CT Abd and Pelvis [CT abd pelvis IV con only] Stat 01/27/24 13:36 MR MRCP Stat 01/27/24 13:47 US gallbladder Stat Pending Results Patient Have Any Pending Studies at Discharge: Yes Discharge Instructions Given to Patient (Per Discharging Provider) Sonido Monterroso were admitted to the hospital with acute cholecystitis. You had a laparoscopic cholecystectomy (removal of your gallblader) on 01/29/[address] Hill. You tolerated this surgery well and there were no complications. Upon discharge from the hospital: * Take Tylenol/Ibuprofen as your first line pain medication. * Take oxycodone 5 mg every 4 hours NEEDED for breakthrough pain. * Follow the instructions from your surgical team as listed below. * Follow-up with your surgical team in 2 weeks outpatient. You can call their office to schedule your appointment at [phone]. Please return to the hospital if you experience any of the following: Fever of 100.5 F or higher, yellowing of your eyes or skin (jaundice), redness/swelling/fluid leaking from your incision sites, dark or rust colored urine, stool that is light in color instead of brown, worsening belly pain, rectal bleeding, shortness of breath, difficulty breathing, chest pain, dizziness, or passing out. It was a pleasure taking care of you while you were in the hospital, Sue Blake PA-C Supervising Physician Co-Signing Physician Notes PA Supervision Note: I personally saw and examined the patient. I verified all braxton points and agree with MARTIN Blake with the following exceptions and/or additions: S-patient having some right shoulder pain from gas release from laparoscopic surgery. Had some mild nausea after breakfast but now eating lunch and doing well. Otherwise no chest pains or shortness of breath O- Vitals reviewed Gen: AAOx3, NAD HEENT: Anicteric sclerae, EOMI CV: RRR no mgr nl S1S2 Pulm: CTAB no wcr Abd: +BS soft laparoscopic surgical sites intact with Dermabond, no drainage or erythema, mild tenderness over incision sites Ext: No edema Skin: No rashes, warm/dry CBC, CMP reviewed A/P-this patient is a 53-year-old female here with acute cholelithiasis likely with past choledocholithiasis, now s/p laparoscopic cholecystectomy Doing very well postoperatively, tolerating diet, pain controlled, stable for discharge to home. No further antibiotics needed Recommend holding home Zepbound for at least 2 more weeks Total Time Total Time Spent Total Time Spent (In Minutes): Greater than 30 minutes spent completing this discharge process including direct patient care, medication reconciliation, documentation, review of labs and images, and coordination of care. Coding Level of Care Code 16422 INP/OBS DISCH >30 MIN Diagnoses Acute cholecystitis K81.0 Elevated LFTs R79.89
[2024-01-30] MEDS ORDERED: ENOXAPARIN INJ 40 MG/0.4 ML SYR SQ SCH (21:00)
== END 2024-01-30 14:53 | disposition home or self-care (01) | DRG 419 ==
LOC: ED 10:50 → EDINP 10:50 → SUATTDRO 18:17 → 3E 20:34